=== PATIENT | female | born 1970 | race Caucasian/White ===

== ENCOUNTER 2025-01-12 18:58 | Emergency (ER) | payer OTHER, SELFPAY ==
--- NOTE | ~2025-01-12 | XR_ITS ---
CLINICAL HISTORY: pain, injury 3 views right hand : Comparison: None Findings: No dislocations No significant arthritic change . The carpal metacarpal joints, metacarpal phalangeal joints and inter phalangeal joints are unremarkable. No erosions No radiopaque foreign body Impression: There is an impacted comminuted intra-articular comminuted fracture involving the distal radius with mild displacement of fragments.. There is ulnar styloid avulsion. 3 views right wrist, with navicular view Comparison: None Findings: There is a comminuted impacted intra-articular fracture of the distal radius with mild displacement of fragments. There is avulsion fracture of the ulnar styloid. The navicular bone is normal. No significant arthritic change No radiopaque foreign body Impression: Impacted intra-articular comminuted fracture of the distal radius. Mildly displaced avulsion fracture of the ulnar styloid. This document has been electronically signed by: Berhane Celis MD on 01/12/2025 20:16:17
--- NOTE | 2025-01-12 19:19 | ED.GENADULT ---
HPI - General Adult General Chief complaint: Extremity Injury, Upper Stated complaint: right wrist pain/ fall 01/12 Time Seen by Provider: 01/12/25 20:04 Source: patient and family (patient's ) Mode of arrival: ambulatory Limitations: no limitations History of Present Illness ED Provider: Katja Hutton PA-C HPI narrative: Patient is a 54 year old assigned female at with no reported medical history presenting to the emergency department today with right wrist pain. Patient states that she went to hit a volleyball at her daughter's volley ball tournament when she fell backwards and landed on her outstretched right wrist. Patient states that she is right hand dominant. Patient states that she did not hit her head or have any loss of consciousness. Patient states that she first went to the urgent care who placed her in a temporary splint and told her to come to the ER for imaging. Patient denies any dizziness, lightheadedness, abdominal pain, nausea, vomiting, fever, chills, blurry vision, double vision, loss of vision, chest pain, difficulty breathing, shortness of breath, back pain, night sweats, pain with urination, increased urinary frequency, increased urinary urgency, blood in her urine or stool, syncope or a near syncopal episode, bowel incontinence, bladder incontinence, or any other complaints at this time. Location: right and upper extremity Relieving factors: immobilization Exacerbating factors: movement Associated symptoms: denies other symptoms Treatments prior to arrival: none Related Data Allergies Allergy/AdvReac Type Severity Reaction Status Date / Time No Known Allergies Allergy Verified 01/12/25 19:22 Review of Systems Constitutional: Constitutional: Reports no additional constitutional complaints, Denies chills, Denies fever(s) and Denies night sweats Eyes: Eyes: Reports no additional eye complaints, Denies blurry vision, Denies change in vision, Denies diplopia, Denies eye discharge, Denies loss of vision and Denies eye pain ENT: Denies dizziness Cardiovascular: Cardiovascular: Reports no additional cardiovascular complaints, Denies chest pain, Denies lightheadedness, Denies Loss of Consciousness and Denies dyspnea Respiratory: Respiratory: Reports no additional respiratory complaints and Denies dyspnea Gastrointestinal: Gastrointestinal: Reports no additional gastrointestinal complaints, Denies abdominal pain, Denies melena, Denies hematochezia, Denies change in bowel habits and Denies change in stool character Genitourinary: Genitourinary: Denies hematuria, Denies urinary frequency, Denies dysuria, Denies urinary incontinence, Denies urinary hesitancy and Denies urinary urgency Musculoskeletal: Musculoskeletal: Reports no additional musculoskeletal complaints, Denies numbness and Denies tingling Comments: right wrist pain Neurologic: Denies dizziness, Denies loss of vision, Denies numbness and Denies tingling Psychiatric: Psychiatric: Reports no additional psychiatric complaints Endocrine: Endocrine: Reports no additional endocrine complaints Hematologic/Lymphatic: Hematologic/Lymphatic: Reports no additional hematologic/lymphatic complaints Allergic/Immunologic: Allergic/Immunologic: Reports no additional allergic/immunologic complaints PMFSH Past Medical History Attestation statement: The following information was validated with the patient. (all information validated with the patient's ) Source: old records reviewed, obtained from family (patient's provided additional history and confirmed the history provided by the patient) and nursing notes reviewed Social History Social History Advance Directives: No Advance Directives Information Provided: No Do you have a plan to hurt others: No Plan Physical Exam ED Vital Signs: Vital Signs - 24 hr 01/12/25 19:21 Temperature 97.8 F Pulse Rate 84 Respiratory Rate 14 Blood Pressure 149/89 H Pulse Oximetry 99 Oxygen Delivery Method Room Air BMI result Body Mass Index 30.6 Const General: cooperative, no acute distress, alert and awake Nutritional Appearance: well nourished Orientation/consciousness: patient oriented x3 Limitations: no limitations [facility]: Yes normal to inspection and Yes atraumatic Ears: hearing grossly normal bilaterally and external ears normal General nose exam: Normal external nose present, no nasal discharge noted and no epistaxis Face and sinus: Yes normal facial exam, No abrasion and No laceration Mouth: Normal oral and palatal mucosa present, no drooling and no muffled voice Eyes General: appearance normal, both eyes and all related structures Periorbital: periorbital findings normal Eyelids: Yes eyelids normal Conjunctivae: conjunctivae normal Pupils: Equal, round and reactive pupils present EOM: EOMs intact bilaterally Neck Neck: Yes normal visual inspection, Yes full ROM and Yes no lymphadenopathy Chest Chest palpation & inspection: normal inspection of the chest Resp Effort & Inspection: normal respiratory effort and able to speak in complete sentences GI Inspection: Yes normal to inspection Neuro General: patient oriented x3, moves all extremities and CN's II-XI intact bilaterally Cranial nerves: Yes Equal, round and reactive pupils present Cognition (Neuro): normal cognition Extrem Other: right wrist in loosely applied volar wrist splint pain with right wrist ROM General: Yes capillary refill normal Psych Appearance: grossly normal Mental Status: mental status grossly normal Affect: normal affect Attitude: cooperative Thought process: Normal thought process present Thought content: Normal thought content present Insight: Good insight present (Psych) Course Course Course Narrative: RME performed by Katja Hutton PA-C. Patient is a 54 year old assigned female at presenting to the emergency department with right wrist pain. Patient states she slipped 3 hours [employer] and landed on an outstretched right wrist. Detailed physical exam and review of systems are deferred to the primary care physician. Imaging ordered. Patient placed back in the waiting room pending room availability and results. Procedures Orthopedic Splinting/Casting Injury #1: Side: right Upper Extremity Injury Location: wrist Upper Extremity Immobilizer: sling/shoulder immobilizer and sugar tong splint Medical Decision Making Medical Decision Making MDM Narrative: Patient is a 54 year old assigned female at with no reported medical history presenting to the emergency department today with right wrist pain. Patient's physical exam was as noted in the physical exam portion of this note. Patient's right wrist x-ray showed a radius and ulnar fracture. I explained my physical exam findings as well as all test results to the patient and the patient's . I answered all questions asked by the patient and the patient's . Patient's right wrist was placed in a sugar tong splint, per procedure note, without incident. While splint was placed, pressure was applied to the dorsal aspect of the wrist to better align the slight displacement of the radius fracture. Patient's PMS was intact prior to and after splint. I stressed the importance of the patient taking her medication as directed (either prescribed or as the over the counter packaging recommends). I stressed the importance of the patient following up with her primary care provider and an orthopedic provider. I stressed the importance of the patient returning to the emergency department immediately if her symptoms were to worsen or if she were to develop any dizziness, shortness of breath, difficulty breathing, chest pain, blurry vision, loss of vision, nausea, vomiting, abdominal pain, fever, chills, back pain, or any other complaints. Patient and the patient's verbalized agreement and understanding with this treatment plan and discharge. Given patient is from out of the area - patient's entire note was printed and provided to the patient and her along with an imaging disk for her to follow up with a closer orthopedic provider. Differential Diagnosis Differential Diagnoses: The differential diagnosis associated with the presentation includes Wrist fracture Admission/Observation Consideration of admission/observation: Escalation of care including admission/observation considered Patient would have been admitted to the hospital had her work up had any findings where hospital admission was appropriate and her clinical presentation warranted hospital admission. Independent Interpretation I performed an independent interpretation of an: Plain X-Ray Interpretation: My interpretation is in agreement with the radiologist's impression of this imaging study. CLINICAL HISTORY: pain, injury 3 views right hand : Comparison: None Findings: No dislocations No significant arthritic change . The carpal metacarpal joints, metacarpal phalangeal joints and inter phalangeal joints are unremarkable. No erosions No radiopaque foreign body Impression: There is an impacted comminuted intra-articular comminuted fracture involving the distal radius with mild displacement of fragments.. There is ulnar styloid avulsion. 3 views right wrist, with navicular view Comparison: None Findings: There is a comminuted impacted intra-articular fracture of the distal radius with mild displacement of fragments. There is avulsion fracture of the ulnar styloid. The navicular bone is normal. No significant arthritic change No radiopaque foreign body Impression: Impacted intra-articular comminuted fracture of the distal radius. Mildly displaced avulsion fracture of the ulnar styloid. This document has been electronically signed by: Berhane Celis MD on 01/12/2025 20:16:17 Dictated By: Berhane Celis MD Signed By: Electronically signed by Berhane Celis MD 01/12/252016 Radiology Impression Discussion of test interpretation with radiology: I have reviewed the radiologist's reading. Independent Historian Clinical information obtained from an independent historian. History obtained from or confirmed by: Spouse (patient's provided additional history and confirmed the history provided by the patient.) Discharge Plan Discharge Clinical Impression: Fracture of wrist Patient Disposition: Home, Self-Care Instructions: Wrist Fracture in Adults (ED) Additional Instructions: Your x-ray showed that you broke both your radius and your ulna. Do NOT get your splint wet. Do NOT remove your splint. If you have any change in sensation, movement, or color of your right fingers - you may loosen the outer CHRISTOPH wraps. If you find yourself loosening the CHRISTOPH wraps to the point of seeing the white splint material underneath - STOP and proceed to your closest Emergency Department immediately. Follow up with your primary care provider and an orthopedic provider. Return to the emergency department immediately if your symptoms worsen or if you develop any dizziness, shortness of breath, difficulty breathing, chest pain, blurry vision, loss of vision, nausea, vomiting, abdominal pain, fever, chills, back pain, or any other complaints. Referrals: [facility] [place] Family Medicine [Provider Group] (Call to establish and follow up with a primary care provider. IF you already have a primary care provider, please follow up with them.) [facility] [place] [facility] [Provider Group] (Call to establish and follow up with a primary care provider. IF you already have a primary care provider, please follow up with them.) [facility] [place] Primary CareAbhishek [Provider Group] (Call to establish and follow up with a primary care provider. IF you already have a primary care provider, please follow up with them.) [facility] [place] Primary CareTim [Provider Group] (Call to establish and follow up with a primary care provider. IF you already have a primary care provider, please follow up with them.) [facility] [place] [facility] [Provider Group] (Call to establish and follow up with an orthopedic provider. ) Print Language: Somali
[2025-01-12 19:21] VITALS: BP 149/89; PULSE 84; RESP 14; TEMP 36.6; O2SAT 99; BMI 30.6
--- OUTSIDE RECORDS SUMMARY | 2025-01-12 20:25 | XMS_ITS | Continuity of Care Document ---
Author Organization [place] - [facility], [facility] Address [address] [place] [address] Assessment No assessment recorded. Plan of Treatment Reminders Order Date Submit Date Provider Last Modified By Organization Details Last Modified Time Details Appointments Physical 2024 10:00A M MEME RAMÍREZ Not available Not available Not available Lab None recorded. Referral None recorded. Procedures None recorded. Surgeries None recorded. Imaging None recorded. Medication Orders None recorded. Patient TargetsNo targets recorded. Patient InstructionsNo instructions recorded. Reason for Referral None Reported. Problems Name Problem SNOMED Code Status Onset Date Resolution Date Notes Provider Name and Address Organization Details Recorded Time Low back pain 200118490 Active 2015 Lesa mock [facility] 6 16:39:59 Dysuria [id number] Jeanette Parnell NP [address] [place], [address], [facility] 4 15:01:45 Amenorrhea [id number] Jeanette Parnell NP [address] [place], [address], [facility] 4 15:01:45 Breast tenderness [id number] Jeanette mock [facility] 4 12:17:02 Dysfunctiona l uterine bleeding Active Marie mock [facility] 4 06:59:26 Depressive disorder [id number] Jeanette Parnell NP [address] [place], [address], [facility] 6 13:44:43 Breast lump symptom Active Marie Rodartetomaszshahid emili [facility] 5 10:11:34 Anemia 984066421 Active Marie Rodartesweetie mock [facility] 5 10:11:34 Abdominal bloating 333254766 Active Marie Rodartesweetie mock [facility] 5 10:11:34 Problem Notes None recorded. Procedures Surgical History Date Name Laterality Status Provider Name and Address Organization Details Recorded Time 024 Most Recent Mammogram completed Asya Langford [facility] 09/14/2024 10:06:16 020 Most Recent Bone Density completed Trisha Delatorre [facility] 09/01/2022 10:13:01 017 Date of Last Pap Smear completed Kindra Wang [facility] 08/10/2017 13:15:20 996 Cholecystectomy completed Elin Dobbins [facility] 06/06/2013 10:59:21 Imaging Results None recorded. Procedure Notes None recorded. Medical Equipment None Reported. Allergies No known drug allergies Medications Name Sig Start Date Stop Date Status Note LastModified by Organization Details LastModified Time carisoprodo l 350 mg tablet Take 1 tablet 3 times a day by oral route. 11/17 completed Not Available Not Available Not Available cyclobenzap rine 10 mg tablet TAKE 1 TABLET NEEDED BY ORAL ROUTE AT BEDTIME. 08/19 completed Not Available Not Available Not Available venlafaxine ER 75 mg capsule,ext ended release 24 hr TAKE 1 CAPSULE(S ) EVERY DAY BY ORAL ROUTE FOR 30 DAYS. 08/11 completed Not Available Not Available Not Available doxycycline hyclate 100 mg capsule TAKE 1 CAPSULE TWICE DAILY X 10 DAYS 08/24 completed Not Available Not Available Not Available ibuprofen 800 mg tablet PLEASE SEE ATTACHED FOR DETAILED DIRECTION S 10/18 /2024 completed Not Available Not Available Not Available fluconazole 150 mg tablet TAKE ONE TABLET AT THIS TIME AND ONE TABLET IN 72 HOURS IF SYMPTOMS PERSIST. 06/30 completed Not Available Not Available Not Available hydrocodone 5 mg-acetamin ophen 325 mg tablet active Not Available Not Available No t Available meloxicam 15 mg tablet 1 TABLET ORALLY ONCE A DAY 30 DAY(S) 09/01 completed Not Available Not Available Not Available ondansetron HCl 4 mg tablet TAKE 2 TABLETS BY MOUTH TWICE A DAY NEEDED FOR 5 DAYS. 08/11 completed Not Available Not Available Not Available prednisone 20 mg tablet PLEASE SEE ATTACHED FOR DETAILED DIRECTION S 08/19 completed Not Available Not Available Not Available venlafaxine ER 150 mg capsule,ext ended release 24 hr TAKE ONE CAPSULE BY MOUTH EVERY DAY 08/11 completed Not Available Not Available Not Available tramadol 50 mg tablet Take 1 tablet every 6 hours by oral route for 10 days. 11/17 completed Not Available Not Available Not Available oxycodone-a cetaminophe n 5 mg-325 mg tablet active Not Available Not Available No t Available meclizine 25 mg tablet TAKE 1 TABLET BY MOUTH 3 TIMES A DAY 08/11 completed Not Available Not Available Not Available cephalexin 500 mg capsule TAKE 1 CAPSULE BY MOUTH THREE TIMES A DAY FOR 7 DAYS 08/15 completed Not Available Not Available Not Available paroxetine 20 mg tablet Take 1 tablet every day by oral route for 30 days. active Not Available Not Available No t Available Cipro 500 mg tablet Take 1 tablet every 12 hours by oral route for 7 days. 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 active Not Available Not Available No t Available ondansetron 4 mg disintegrat ing tablet PLACE 2 TABLETS TWICE A DAY BY TRANSLING UAL ROUTE NEEDED. 08/19 completed Not Available Not Available Not Available fluticasone propionate 50 mcg/actuati on nasal spray,suspe nsion active Not Available Not Available Not Available mometasone 0.1 % topical cream USE TO APPLY TO AFFECTED AREA TWICE DAILY 06/30 completed Not Available Not Available Not Available amoxicillin 875 mg-potassiu m clavulanate 125 mg tablet TAKE 1 TABLET BY MOUTH EVERY 12 HOURS FOR 7 DAYS 08/14 completed Not Available Not Available Not Available cyclobenzap rine 5 mg tablet active Not Available Not Available Not Available bupropion HCl XL 300 mg 24 hr tablet, extended release TAKE 1 TABLET BY MOUTH EVERY DAY 01/17 completed Not Available Not Available Not Available bupropion HCl XL 150 mg 24 hr tablet, extended release TAKE 1 TABLET EVERY DAY BY ORAL ROUTE FOR 30 DAYS. 07/28 completed Not Available Not Available Not Available nitrofurant oin monohydrate /macrocryst als 100 mg capsule TAKE 1 CAPSULE BY MOUTH EVERY 12 HOURS FOR 5 DAYS 09/07 completed Not Available Not Available Not Available carisoprodo l 250 mg tablet Take 1 tablet 3 times a day by oral route as needed for 10 days. 08/25 completed Not Available Not Available Not Available Vitals Date Recorded Body height Body mass index (BMI) Body weight Heart rate Oxygen saturation Oxygen saturation in Arterial blood by Pulse oximetry Body temperature Systolic blood pressure Diastolic blood pressure Provider Name and Address Organization Details Last Updated DateTime 5 157.48 cm 31.9 kg/m2 86571.8 7 g 79 /min 99 % 99 % 98.9 [degF] 110 mm[Hg] 80 mm[Hg] Asya Cormier i, [place] - [facility] 5 09:44:31 Social History Question Answer Notes LastModified by Organizat ion Details LastModified Time Tobacco Smoking Status Former Smoker Liz mock [place] - [facility] 08/19/2021 11:10:11 Do You Have An Advance Directive? No Information not available 08/19/2021 What Is Your Level Of Alcohol Consumption? Occasional Information not available 08/19/2021 What Is Your Level Of Caffeine Consumption? Moderate 1-2 Cups Of Coffee Daily Information not available 09/14/2024 How Much Tobacco Do You Chew? None Information not available 08/14/2019 In The 14 Days Before Symptom Onset, Have You Had Close Contact With A Laboratory-confi rmed COVID-19 While That Case Was Ill? No Information not available 08/15/2020 If Patient Spent Time In [facility] - Does The Patient Live In [facility]? No [email or web address] Information not available 12/27/2019 In The 14 Days Before Symptom Onset, Have You Had Close Contact With A Person Who Is Under Investigation For COVID-19 While That Person Was Ill? No Information not available 08/15/2020 In The 14 Days Before Symptom Onset, Did The Patient Spend Time In [facility]? No [email or web address] Information not available 12/27/2019 What Type Of Diet Are You Following? REGULAR Information not available 06/30/2021 Which Illicit Or Recreational Drugs Have You Used? NONE Information not available 09/14/2024 Do You Or Have You Ever Used E-cigarettes Or Vape? Never Used Electronic Cigarettes Information not available 08/14/2019 When Did You Quit Smoking? 16+yearssince lastcigarette Information not available 06/30/2021 Are There Any Guns Present In Your Home? No Information not available 06/30/2021 Hard Of Hearing Or Deaf In One Or Both Ears? No Information not available 08/11/2018 Legally Blind In One Or Both Eyes? No Information not available 08/11/2018 When Was Your Last Colonoscopy 10/02/2019 [email or web address] Information not available 11/19/2019 Do You Have A Medical Power Of Creel Selector? Yes Information not available 08/19/2021 What Was The Date Of Your Most Recent Tobacco Screening? 01/08/2025 Information not available 01/08/2025 Do You Have An Out Of Hospital DNR? No Information not available 08/19/2021 Performs Monthly Self-breast Exam? Yes Information not available 09/07/2023 Do You Have Any Pets? Yes Information not available 06/30/2021 Do You Use Protection During Sex? No Information not available 08/19/2021 What Is Your Relationship Status? Information not available 06/30/2021 Do You Use Your Seat Belt Or Car Seat Routinely? Yes Information not available 06/30/2021 Are You Sexually Active? Yes Information not available 06/30/2021 Do You Have Smoke And Carbon Monoxide Detectors In Your Home? Yes Information not available 06/30/2021 Are You Passively Exposed To Smoke? No Information not available 06/30/2021 Do You Or Have You Ever Used Smokeless Tobacco? Never Used Smokeless Tobacco Information not available 08/14/2019 How Much Tobacco Do You Smoke? No Information not available 08/31/2013 Do You Use Any Illicit Or Recreational Drugs? No Information not available 06/30/2021 Do You Use Sunscreen Routinely? Yes Information not available 06/30/2021 How Many Years Have You Smoked Tobacco? 10 Information not available 08/31/2013 Do You Have Any Dietary Restrictions? No Information not available 06/30/2021 Do You Or Have You Ever Used Any Other Forms Of Tobacco Or Nicotine? No Information not available 08/19/2021 Sex: Unknown Functional Status Question Answer Note LastModified by Organizat ion Details LastModified Time What is your exercise level? Occasional Information not available 06/30/2021 Mental Status None recorded. Family History Relationship Description Onset Age of this Age Resolved Age Notes LastModified by Organization Details LastModified Time Mother Hypertensive disorder previo usly record ed as Hypert ension emily Not available 05/14/2016 13:10:49 Father Hypertensive disorder previo usly record ed as Hypert ension emily Not available 05/14/2016 13:10:49 Unspecified Relation Malignant neoplastic disease 46 Not available 17:47:51 Medical History Condition Response Coronary Artery Disease N Gout N Kidney Stones N Blood Diseases N Hyperthyroidism N COPD N Depression N Hypothyroidism N Developmental or Behavioral Disorders N Eczema, Hives or other skin conditions N Anxiety Disorder N A-Fib N Muscle, Joint, or Bone Problems N Vision or Eye Problems N Arthritis Y Serious Illness or Injuries N Congenital Anomalies N Cancer N Stroke N Bladder or Kidney Problems N Hospital Admission other than N High Cholesterol N Liver Disease N Fibromyalgia N Kidney Disease N Heart Problems N Ear or Hearing Problems N ADD or ADHD N Thyroid Problems N Skin Problems N Anemia N Constipation N Diabetes N Bedwetting N Seizures/Epilepsy N Tuberculosis N Diverticulitis N Asthma N Allergies N GERD/Reflux N Heart Disease N Pulmonary Embolism N Hypertension N Osteoporosis N Chicken Pox N Gynecological History Statement/Question Response Number Of Children 4 Flow Light Date of LMP 04/11/2019 Duration of Flow (days) 3 Most Recent Mammogram 08/22/2024 Current Control Method None Age at First Child 27 If Post Menopausal, Age at Menopause 1 Frequency of Cycle (Q days) 34 Most Recent Bone Density 10/15/2020 Sexually Active? Y Menses Monthly N Date of Last Pap Smear 08/10/2017 LMP Definite Obstetrics History GPAL:G 0 P 0 0 0 0 Immunizations Vaccine Type Date Status Note Provider Nam e and Address Organization Details Recorded Time influenza, seasonal, intradermal, preservative free 4 completed Not Available [facility] 12/15/2019 02:16:24 influenza, seasonal, intradermal, preservative free 3 completed Not Available [facility] 12/15/2019 02:16:22 Tdap 0 completed Tamera Parnell, KAMILA [address] [place], [address], [facility] - [facility] 08/15/2020 13:50:31 zoster recombinant 4 completed Not Available [facility] 09/14/2024 11:03:54 zoster recombinant 5 completed Not Available [facility] 01/08/2025 10:00:24 Influenza, split virus, trivalent, preservative 5 completed Asya mock [place] - [facility] 09/07/2023 10:06:34 Past Encounters Encounter ID Performer Location Encounter Start Date Encounter Closed Date Diagnosis/Indication Diagnosis SNOMED-CT Code Diagnosis ICD10 Code Diagnosis Note [id number] MEME RAMÍREZ [facility] [address] [place] [address] 01/08/2025 09:37:48 01/08/2025 10:02:21 Active immunization 36196119 Z23 Dose #2inj only today Health Concerns Section Related Observation LastModified by Organization Detai ls LastModified Time None Recorded Concern Status LastModified by Organization Details LastModified Time None Recorded Payers Encounter Date Sequence Insurance Name Policy Number Policy Catalan Covered Member ID Catalan Member ID Guarantor Name 01/08/2025 1 [facility] Inaika PLANS [facility] TYPE I (HMO) [id number] Cecilia Pollard [id number] Cecilia Pollard Notes Date Note Type Note Provider Name a ar Address Organization Details Recorded Time 01/08/2025 text/html second shingles dose MEME RAMÍREZ [address] [place], [address], [place] - [facility] 01/08/2025 10:00:09 OBGyn Episode No OBEpisode recorded.
--- OUTSIDE RECORDS SUMMARY | 2025-01-12 20:26 | XMS_ITS ---
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 Name Role Phone Jagjit Bowles DO Primary Care Provider Unavail able Day Garcia Unavailable [phone] Ryan Vaishali Navarro Unavailable [phone] Allergies No Known Allergies REASON FOR VISIT left plantar fasciitis Social History Tobacco Use: Social History Observation Description Date Details (start date - stop date) Never Smoker NA - NA Tobacco Use/Smoking Question Answer Notes Patient is a: never smoker Tobacco Control (Standard) Question Answer Notes Tobacco use: Nonsmoker Vital Signs Height 62 in 05/30/2024 Weight 175.8 lbs 05/30/2024 BMI 32.15 kg/m2 05/30/2024 Encounters Encounter Location Date Provider Diagnosis [facility] [address] [place] [address] [id number] 05/30/2024 Vaishali Navarro Plantar fascial fibromatosis M72.2 and Left foot pain M79.672 Assessments Encounter Date Diagnosis (ICD Code) Assessment Notes Treatment Notes Treatment Clinical Notes Section Notes 05/30/2024 Plantar fascial fibromatosis (ICD-10 - M72.2) Discussed findings in detail with patient. Discussed with patient that this time her pain has resolved. At this time recommend patient continue stretching 2 to 3 times a week for the next month. Explained to patient that although her pain has resolved with the injection we want to ensure that it remains resolved. Discussed with patient that after 1 month she can discontinue stretching as long as she has no reoccurrence. If she is noticing reoccurrence after 1 month or in the future recommend she increase/ resume the stretching to twice a day. If she continues to have pain she is to call the office, and we will discuss a 2nd injection. 05/30/2024 Left foot pain (ICD-10 - M79.672) Patient's pain has resolved 05/30/2024 Other Evaluation and management including exam, discussion and documentation for a total of 21 minutes. It should be noted that part or all of this chart was completed utilizing [employer] Speech Recognition software. Grammatical errors, random word or phrase insertions or admissions, pronoun errors, incomplete and/or incorrect sentences are occasional consequences of the dictation system due to software parity limitation, ambient noise or hardware issues. These errors may have been missed by proof reading prior to the fixation of the authors electronic signature. Any questions or concerns about the content, text, or information contained in the body of this clinical note entry should be directly addressed by the provider for clarification. Plan Of Treatment Next Appt Details Follow Up: prn, Reason: Progress Notes * Maritza POLLARDOB:[birth year] (53 yo F)Acc No.[id number]:05/30/2024 Patient:?ARIELA Cecilia Provider:?Vaishali Navarro DPM :1970???Age:53 Y???Sex:Female D ate:05/30/2024 Address: [address], [facility] [facility] Pcp:Jagjit Bowles, DO Subjective: * Chief Complaints: * ???Left plantar fasciitis * HPI: ???Podiatric:? 53-year-old female presents today follow-up left plantar fasciitis. Patient admits that her pain has completely resolved. She admits that after the injection within 24 hours her pain had resolved. She has had no reoccurrence of the pain since her last visit. She admits that she is worn several different types of shoes without much issue. She did wear flip-flops yesterday throughout the day and admits that she did have some Charley horses up the leg and into the thigh at the end of the day. She denies stretching at this time. She denies any other issues. * ROS:?ROS:?Constitutional?Patient denies, fever, chills, malaise.?Musculoskeletal?Patient complains of, joint pain, swelling and muscle pain.?Skin?Denies dry skin, itching, and rash, ulcers, alopecia.?Neurologic?Denies dizziness, fainting, headaches, loss of strength, memory loss or tingling/numbness.? * Medical History:? * Surgical History:?cholecyste ctomy * Hospitalization/Major Diagno stic Procedure:?Denies Past Hospitalization * Family History:?Father: kena caceres, diagnosed with Hypertension, Heart Disease.?Mother: alive, diagnosed with Hypertension.? * Social History:?Tobacco Use:?Tobacco Use/Smoking?Patient is a:?never smoker.?Tobacco Control (Standard)?Tobacco use:?Nonsmoker.?Social History:?Marital Status: . Living arrangements: with spouse. Alcohol use: none. Children: 4. Occupation: Unemployed. Drug Use: No. * Medications:?None * Allergies:?N.K.D.A.no[Allerg ies Verified] * Implants:? Objective: * Vitals:?Ht: 62, Wt:175.8, Wt Change: -5.4 lbs, BMI:32.15Index. * Examination: ???Dermatology: ?Dermatology?Skin is warm, dry. Skin temperature is warm to cool proximal to distal bilateral. No erythema or edema noted over the feet bilateral.?.?Musculoskeletal: ?Musculoskeletal?Cavus foot type b/l. Left foot: No pain or tenderness noted on palpation of the plantar medial calcaneal tubercle or throughout the heel. No pain noted within the medial arch. No evidence of edema or erythema over the medial arch. No pain noted of the posterior calcaneus. Negative Tinel's. On dorsiflexion, medial fascial band is still noted to be somewhat taut, but there is noted to be increased dorsiflexion ability as compared to previous visits.?Neurological: ???Sensation is intact to light touch at the level of the digits. ???Vascular: ?Pedal pulses palpable CFT< 3 seconds b/l. No edema noted. ??? Assessment: * Assessment: 1.?Plantar fascial fibromato sis - M72.2 (Primary)?2.?Left foot pain - M79.672? Plan: * Treatment: 2.?Left foot pain? Clinical Notes:Patient's pain has resolved?? 3.?Others? Clinical Notes: Evaluation and management including exam, discussion and documentation for a total of 21 minutes. It should be noted that part or all of this chart was completed utilizing [employer] Speech Recognition software. Grammatical errors, random word or phrase insertions or admissions, pronoun errors, incomplete and/or incorrect sentences are occasional consequences of the dictation system due to software parity limitation, ambient noise or hardware issues. These errors may have been missed by proof reading prior to the fixation of the authors electronic signature. Any questions or concerns about the content, text, or information contained in the body of this clinical note entry should be directly addressed by the provider for clarification. ?? * Procedure Codes:? * Follow Up:?prn * * Sign off status: Completed true * Provider:?Vaishali Navarro DPM Date:?0 05/30/2024 Generated for Artur john/Zhane/Kacie on:?01/12/2025 08:26 PM EST History and Physical Notes * HPI (History of Present Illness) Category Sub-Category Detail Notes Category Not es Podiatric 53-year-old fem chayo presents today follow-up left plantar fasciitis. Patient admits that her pain has completely resolved. She admits that after the injection within 24 hours her pain had resolved. She has had no reoccurrence of the pain since her last visit. She admits that she is worn several different types of shoes without much issue. She did wear flip-flops yesterday throughout the day and admits that she did have some Charley horses up the leg and into the thigh at the end of the day. She denies stretching at this time. She denies any other issues. Examination Category Sub-Category Detail Notes Category Not es Neurological Sensation is intact to light touch at the level of the digits Dermatology Dermatology Skin is warm, dr dexter Skin temperature is warm to cool proximal to distal bilateral. No erythema or edema noted over the feet bilateral. Musculoskeletal Musculoskeletal Cavus foot type b/l. Left foot: No pain or tenderness noted on palpation of the plantar medial calcaneal tubercle or throughout the heel. No pain noted within the medial arch. No evidence of edema or erythema over the medial arch. No pain noted of the posterior calcaneus. Negative Tinel's. On dorsiflexion, medial fascial band is still noted to be somewhat taut, but there is noted to be increased dorsiflexion ability as compared to previous visits Vascular Pedal pulses palpable CFT< 3 seconds b/l. No edema noted.
--- OUTSIDE RECORDS SUMMARY | 2025-01-12 20:26 | XMS_ITS | Patient Health Record ---
Author Organization [facility] Address [address] [place] [address] Care Team Providers Care Box Coverer Hand Name Role Phone Jagjit Bowles DO Primary Care Provider Unavail able Day Garcia Unavailable [phone] Vaishali Zuleta Unavailable [phone] Allergies No Known Allergies Results Component Value Reference Range Notes XRAY FOOT RIGHT Reviewed date:03/09/2024 11:19:12 AM Interpretation: Performing Lab: Notes/Report: PROCEDURE: XRAY Foot Right 3v min INDICATION: Anterior lung. COMPARISON: None. FINDINGS: Metallic BB marker placed at the dorsum of the right mid foot corresponding to the palpable site of lump. There is focal soft tissue prominence or soft tissue swelling at this location. No evidence of acute fracture, dislocation, periosteal reaction or osseous destructive changes involving the right foot. Multifocal mild osteoarthritic changes identified throughout the right foot most pronounced at the first metatarsophalangeal joint, the proximal and distal interphalangeal joints of the first through the fifth toes. No periarticular calcifications are seen. There is posterior and plantar calcaneal spurring likely due to noninflammatory enthesopathy. Visualized soft tissues are unremarkable. IMPRESSION: 1. No evidence of acute fracture, dislocation, osseous destructive changes or periosteal reaction involving the right foot. 2. Focal mild apparent soft tissue prominence or soft tissue swelling noted at the dorsum of the right mid foot corresponding to the palpable site of lump. 3. Mild to moderate multifocal osteoarthrosis throughout the right foot, as discussed above. Given history of dorsal right foot lump, consider further evaluation with focused soft tissue ultrasound or cross-sectional imaging such as contrast-enhanced MRI. Electronically Signed By: David White M.D. Signature Date: 03/09/2024 9:13 AM PROCEDURE: XRAY Foot Right 3v min INDICATION: Anterior lung. COMPARISON: None. FINDINGS: Metallic B B marker placed at the dorsum of the right mid foot corresponding to the palpable site of lum p. There is focal soft tissue prominence or soft tissue swelling at this location. No evidenc e of acute fracture, dislocation, periosteal reaction or osseous destructive changes involving the right foot. Multifocal mild osteoarthritic changes identified throughout the right foot most pronounced at the first metatarsophalangeal joint, the proximal and distal interphal angeal joints of the first through the fifth toes. No periarticular calcifications are s een. There is posterior and plantar calcaneal spurring likely due to noninflammatory enth esopathy. Visualized soft tissues are unremarkable. IMPRESSION: 1. No evidence of ac [place] fracture, dislocation, osseous destructive changes or periosteal reaction involving t he right foot. 2. Focal mild appare nt soft tissue prominence or soft tissue swelling noted at the dorsum of the right mid foot corresponding to the palpable site of lump. 3. Mild to moderate multifocal osteoarthrosis throughout the right foot, as discussed above. Given history of gonzález christiano right foot lump, consider further evaluation with focused soft tissue ultrasound or cross- sectional imaging such as contrast-enhanced MRI. Electronically Sara d By: David White M.D. Signature Date: 03/09 9:13 AM Reason For Referral No Information Social History Tobacco Use: Social History Observation Description Date Details (start date - stop date) Never Smoker NA - NA Tobacco Use/Smoking Question Answer Notes Patient is a: never smoker Tobacco Control (Standard) Question Answer Notes Tobacco use: Nonsmoker Vital Signs Height 62 in 05/30/2024 Weight 175.8 lbs 05/30/2024 BMI 32.15 kg/m2 05/30/2024 Encounters Encounter Location Date Provider Diagnosis [facility] [address], [place] [id number] 03/08/2024 Vaishali Blitz Herbel Bone spur of right foot M77.51 ; Plantar fascial fibromatosis M72.2 ; Cavus foot, acquired M21.6X9 and Left foot pain M79.672 [facility] [address], [place] [id number] 04/02/2024 Vaishali Blitz Herbel Bone spur of right foot M77.51 ; Plantar fascial fibromatosis M72.2 ; Tinea pedis, right B35.3 ; Left foot pain M79.672 and Cavus foot, acquired M21.6X9 [facility] [address], [place] [id number] 04/25/2024 Vaishali Blitz Herbel Bone spur of right foot M77.51 ; Plantar fascial fibromatosis M72.2 ; Tinea pedis, right B35.3 ; Left foot pain M79.672 and Cavus foot, acquired M21.6X9 [facility] [address], [place] [id number] 05/30/2024 Vaishali Blitz Herbel Plantar fascial fibromatosis M72.2 and Left foot pain M79.672 [facility] [address] [id number] 03/08/2024 Vaishali Blitz Herbel Bone spur of right foot M77.51 Assessments Encounter Date Diagnosis (ICD Code) Assessment [...] (ICD-10 - M79.672) Patient's pain has resolved 04/25/2024 Bone spur of right foot (ICD-10 - M77.51) Discussed x-ray findings in detail with patient. Discussed with patient that it did show a soft tissue mass where we are noting that increased prominence. We discussed that follow-up studies can be performed including an MRI. At this time patient prefers to hold off as it is not causing her pain 04/02/2024 Plantar fascial fibromatosis (ICD-10 - M72.2) Discussed findings in detail with patient. We discussed additional treatment options given she is still having pain over the heel. We discussed injections, anti-inflammatori es, physical therapy, night splints, continuing with the at-home physical therapy. Patient would like to continue with at-home physical therapy and use a night splint. Patient already has not night splint at home. Patient is advised to wear this at night when she gets into bed. We discussed that it may be difficult to sleep in, and she can remove it prior to sleep. She will then follow up for reassessment in a few weeks 04/02/2024 Bone spur of right foot (ICD-10 - M77.51) Patient's right foot pain is resolved on exam. Patient did obtain x-rays but these were not discussed at today's visit. We will discuss them in detail at her follow up visit 03/08/2024 Bone spur of right foot (ICD-10 - M77.51) 03/08/2024 Plantar fascial fibromatosis (ICD-10 - M72.2) Discussed findings in detail and explained to patient how foot type /anatomy correlate to her current issue. Patient was made aware of the etiology of plantar fasciitis and the treatment options including shoe gear changes, activity modifications, stretching, icing, functional orthotic devices, strapping/taping, cortisone injections, physical therapy, anti-inflammatori es, and surgical correction. Patient will start stretching twice a day, icing at least once a day at night, wear supportive shoes and not walk barefoot/sock foot.. Stretches were discussed and demonstrated for patient, Educational literature was dispensed. Discussed the use of frozen water bottle daily. Discussed the use of NSAID therapy and recommended using Ibuprofen 400 mg twice a day x 2 weeks., Discussed the use of inserts and the 3 types of inserts. After a thorough discussion, recommended pre- josefa inserts such as Pure Stride or Super feet. All patient questions were asked and answered to their satisfaction 03/08/2024 Bone spur of right foot (ICD-10 - M77.51) Discussed findings in detail with patient. Discussed with patient that the bony prominence she is noting is over 1 of the midfoot joints of the right foot. We discussed possible reasons for the formation of this bony prominence including hypermobility at the joint. We discussed treatment options and at this time recommend an x-ray for full evaluation of the underlying deformity. Patient is agreeable. She will obtain x-rays after today's visit, and we will discuss them at her next visit. 03/08/2024 Cavus foot, acquired (ICD-10 - M21.6X9) Discussed with patient that she does have a high arch foot type. Discussed with patient that given her foot type I do recommend support on a regular basis. We discussed various types of supports and power step inserts were dispensed to patient with instructions on the proper break-in period. 04/02/2024 Tinea pedis, right (ICD-10 - B35.3) Patient was made aware of the above findings and the treatment options. I instructed patient on proper foot washing and drying. Patient will wash and dry the feet daily. Patient instructed to continue using the [id number] medication she has been using. If she does not note resolution in 1 week she will call the office and a prescription will be sent to her pharmacy 04/25/2024 Plantar fascial fibromatosis (ICD-10 - M72.2) Discussed findings in detail with patient. We discussed additional treatment options as she is still having pain over the heel. We discussed physical therapy versus an injection. At this time patient would like to move forward with an injection. Patient was instructed that she does need to continue with the at-home therapy, icing, NSAIDs as necessary and night splint. Patient was made aware of possible complications from cortisone injections including; pain, swelling, bleaching of the skin at the injection site, bruising, infection, rupture of ligament/tendon, weakening of soft tissue structures, allergic reaction, and elevation of blood glucose levels. After obtaining verbal consent, the skin was cleaned with alcohol. 3 cc of a 1:1 :1 mixture of 0.5% Marcaine plain, Dexamethasone, and Kenalog into the left heel without incident. This is the 1st injection 04/02/2024 Left foot pain (ICD-10 - M79.672) 04/25/2024 Tinea pedis, right (ICD-10 - B35.3) Patient's tinea pedis infection has resolved. 03/08/2024 Left foot pain (ICD-10 - M79.672) 04/02/2024 Cavus foot, acquired (ICD-10 - M21.6X9) patient instructed to remain in a stable shoe with the insert 04/25/2024 Left foot pain (ICD-10 - M79.672) 04/25/2024 Cavus foot, acquired (ICD-10 - M21.6X9) patient instructed to remain in a stable shoe with the insert 03/08/2024 Other Evaluation and management including exam, discussion and documentation for a total of 33 minutes. It should be noted that part or all of this chart was completed utilizing [employer] Speech Recognition software. Grammatical errors, random word [...] directly addressed by the provider for clarification. 05/30/2024 Other Evaluation and management including exam, discussion and documentation for a total of 21 minutes. It should be noted that part or all of this chart was completed utilizing [employer] Speech Recognition software. Grammatical errors, random word [...] directly addressed by the provider for clarification. 04/25/2024 Other Evaluation and management including exam, discussion and documentation for a total of 22 minutes. This is separate from the procedure performed It should be noted that part or all of this chart was completed utilizing [employer] Recognition software. Grammatical errors, random word or [...] directly addressed by the provider for clarification. 04/02/2024 Other Evaluation and management including exam, discussion and documentation for a total of 24 minutes. It should be noted that part or all of this chart was completed utilizing [employer] Speech Recognition software. Grammatical errors, random word [...] the provider for clarification. Plan Of Treatment Pending Test Test Name Order Date XRAY SHOULDER RIGHT 10/26/2021 Future Test Test Name Order Date XRAY SHOULDER RIGHT 08/06/2021 Insurance Providers Payer Name Payer Address Payer Phone Subscriber Number Group Number Insured Name Patient Relationship to Insured Coverage Start Date Coverage End Date [facility] [employer] [facility] [address] [place] [phone] [id number] DIRECT Cecilia Pollard Self - patient is the insured 4 Medicaid [address] [place] [address] [id number] [facility] PART[facility] HSN Cecilia Pollard Self - patient is the insured Medical (General) History Medical History History ICD Code depression Surgical History Surgery Date(Month/Year) cholecystectomy
--- OUTSIDE RECORDS SUMMARY | 2025-01-12 20:26 | XMS_ITS | Data Portability ---
Author Organization [place] - [facility]igh[facility] Address [address] [place] [address] Assessment No assessment recorded. Plan of Treatment Reminders Order Date Submit Date Provider Last Modified By Organization Details Last Modified Time Details Appointments Physica l 2024 10:00A M MEME RAMÍREZ Not available Not available Not available Lab urinaly sis, dipstic k 2023 024 [email or web address] In-House Results, For Internal Use Only, Do Not Delete/merge, [id number] 09/14/2024 11:03:36 TSH, serum or plasma 2023 024 MARK In-House Results, For Internal Use Only, Do Not Delete/merge, 09/17/2024 13:35:20 lipid panel, serum 2023 024 MARK In-House Results, For Internal Use Only, Do Not Delete/merge, 09/17/2024 13:35:18 CMP, serum or plasma 2023 024 MARK In-House Results, For Internal Use Only, Do Not Delete/merge, [id number] 09/17/2024 13:35:19 CBC w/ auto diff 2023 024 MARK In-House Results, For Internal Use Only, Do Not Delete/merge, [id number] 09/17/2024 13:35:19 urinaly sis, dipstic k 2022 023 [email or web address] In-House Results, For Internal Use Only, Do Not Delete/merge, [id number] 09/07/2023 11:20:13 TSH, serum or plasma 2022 023 MARK In-House Results, For Internal Use Only, Do Not Delete/merge, 09/09/2023 15:53:22 lipid panel, serum 2022 023 MARK In-House Results, For Internal Use Only, Do Not Delete/merge, 09/09/2023 15:53:20 CMP, serum or plasma 2022 023 MARK In-House Results, For Internal Use Only, Do Not Delete/merge, 09/09/2023 15:53:21 CBC w/ auto diff 2022 023 MARK In-House Results, For Internal Use Only, Do Not Delete/merge, 09/09/2023 15:53:21 urinaly sis, dipstic k 2021 022 [email or web address] In-House Results, For Internal Use Only, Do Not Delete/merge, [id number] 09/01/2022 10:40:09 TSH, serum or plasma 2021 022 MARK In-House Results, For Internal Use Only, Do Not Delete/merge, 09/04/2022 14:50:58 lipid panel, serum 2021 022 MARK In-House Results, For Internal Use Only, Do Not Delete/merge, [id number] 09/04/2022 14:50:55 CBC 2021 022 rosie In-House Results, For Internal Use Only, Do Not Delete/merge, 09/08/2022 09:12:51 CMP, serum or plasma 2021 022 MARK In-House Results, For Internal Use Only, Do Not Delete/merge, [id number] 09/04/2022 14:50:56 urinaly sis, dipstic k 2020 021 [email or web address] In-House Results, For Internal Use Only, Do Not Delete/merge, [id number] 08/19/2021 11:26:50 TSH, serum or plasma 2020 021 MARK In-House Results, For Internal Use Only, Do Not Delete/merge, [id number] 08/22/2021 16:27:23 lipid panel, serum 2020 MARK In-House Results, For Internal Use Only, Do Not Delete/merge, [id number] 08/22/2021 16:27:21 CBC 2020 rosie In-House Results, For Internal Use Only, Do Not Delete/merge, 08/26/2021 08:46:10 CMP, serum or plasma 2020 MARK In-House Results, For Internal Use Only, Do Not Delete/merge, [id number] 08/22/2021 16:27:22 hepatit is C panel, serum - [facility] recomme nded screeni ng for Hep C patient s born between 1944 and 1964 021 rosie In-House Results, For Internal Use Only, Do Not Delete/merge, 08/26/2021 08:46:20 Referral clinica l therapi st referra l - depress vivian symptom s, needs therapy 2022 023 [email or web address] Not available 09/08/2023 08:45:00 neurops ycholog ist referra l - needs neurops ych testing for diagnos is and help guiding treatme nt. Some depress vivian symptom s, some attenti on difficu lty 2022 023 [email or web address] Steve Nix EDD, [address] [facility], [place], [address], 09/07/2023 11:23:45 nutriti onist/d ietitia n referra l 2021 022 [email or web address] Not available 09/01/2022 10:42:15 Procedures None recorde d. Surgeries None recorde d. Imaging MAMMO, screeni ng, digital , bilater al - routine screeni ng, last 08/21/242023 024 [email or web address] [facility] [address] [place] [address], [place], [address], 09/14/2024 11:21:01 home sleep study 2020 021 MARK Not available 09/16/2021 17:37:35 Medication Orders None recorde d. Patient TargetsNo targets recorded. Patient Instructions Encounter Date Encounter Id Patient Instructions Last Modified By Organization Details Last Modified Time 08/19/2021 [id number] Physical and blood work done today. UTD with mammogram, pap smear, BMD, Tdap vaccine and colonoscopy. Refused flu and covid vaccines. Discussed appropriate diet and exercise. Will perform monthly BSEs. F/u pending labs. [email or web address] Not available 08/19/2021 11:29:47 09/01/2022 [id number] learning about dietary guidelines [email or web address] Not available 09/01/2022 10:40:09 Discussed healthy diet and exercise. Discussed appropriate age based screening measures. Discussed PMH and pertinent family history. All questions answered. Will follow up with lab results. Return to office yearly and PRN. sherine Not available 09/01/2022 10:40:17 09/07/2023 [id number] RTO for PE, labs, prn [email or web address] Not available 11/09/2023 21:13:00 09/14/2024 [id number] RTO for Shingrix #2, prn [email or web address] Not available 09/14/2024 11:01:48 Reason for Referral Tear Down Man/dietitian Refer ral for Obesity Referring Physician: Harpreet Gillespie, Family Medicine, Encounter Date: 09/01/2022 Clinical Therapist Referral for Depressive disorder depressive symptoms, needs therapy Referring Physician: [facility], Encounter Date: 09/07/2023 Neuropsychologist Referral f or Mood disorder needs neuropsych testing for diagnosis and help guiding treatment. Some depressive symptoms, some attention difficulty Referring Physician: [facility], Encounter Date: 09/07/2023 Results Created Date Observation Date Name Description Value Unit Range Abnormal Flag Note LastModifiedBy Organization Detail LastModifiedTime 08/19/20 21 08/22/2021 LIPID PANEL WITH REFLE X TO DIREC T LDL cholesterol, total 230 mg/dL <200 high Not Available [facility] [place] [facility] [address], [place], [address], 08/22/2021 16:27:20 08/19/20 21 08/22/2021 LIPID PANEL WITH REFLE X TO DIREC T LDL HDL cholesterol 62 mg/dL > or = 50 normal Not Available [facility] [place] [facility] [address], [place], [address], 08/22/2021 16:27:20 08/19/20 21 08/22/2021 LIPID PANEL WITH REFLE X TO DIREC T LDL triglyceride s 112 mg/dL <150 normal Not Available [facility] [place] [facility] [address], [place], [address], 08/22/2021 16:27:20 08/19/20 21 08/22/2021 LIPID PANEL WITH REFLE X TO DIREC T LDL LDL-choleste rol 145 mg/dL _(elaine c) high Refer ence range : <100 Kenna able range <100 mg/dL for prima ry preve ntion ; <70 mg/dL for patie nts with CHD or diabe tic patie nts with > or = 2 CHD risk facto rs. LDL-C is now calcu lated using the Rosa n-Hop kins calcu flaco n, which is a valid ated novel metho d provi iván dosste r accur acy than the Fried harvey equat ion in the estim ation of LDL-C . Rosa magallon SS et al. MILAGROS. 2013; 310(1 9): 2061- 2068 (http ://ed rachaelati on.Qu Martell hopkins Fooooos. com/f aq/FA Q164) Not Available [facility] [place] [facility] [address], [place], [address], 08/22/2021 16:27:20 08/19/20 21 08/22/2021 LIPID PANEL WITH REFLE X TO DIREC T LDL chol/HDLC ratio 3.7 (calc ) <5.0 normal Not Available [facility] [address], [address], 08/22/2021 16:27:20 08/19/20 21 08/22/2021 LIPID PANEL WITH REFLE X TO DIREC T LDL non HDL cholesterol 168 mg/dL _(elaine c) <130 high For patie nts with diabe lauri plus 1 major ASCVD risk facto r, treat ing to a non-H DL-C goal of <100 mg/dL (LDL- C of <70 mg/dL ) is nadine doss optio n. Not Available [facility] [address], [address], 08/22/2021 16:27:20 08/19/20 21 08/22/2021 COMPR EHENS VIVIAN METAB OLIC PANEL glucose 84 mg/dL 65-139 normal Non-f astin g refer ence inter poly Not Available [facility] [address], [place], [address], 08/22/2021 16:27:22 08/19/20 21 08/22/2021 COMPR EHENS VIVIAN METAB OLIC PANEL urea nitrogen (BUN) 18 mg/dL 7-25 normal Not Available [facility] [address], [address], 08/22/2021 16:27:22 08/19/20 21 08/22/2021 COMPR EHENS VIVIAN METAB OLIC PANEL creatinine 0.68 mg/dL 0.50-1 .05 normal For patie nts >49 years of age, the refer ence limit for Creat inine is appro ximat marino 13% highe r for peopl e ident ified as Afric an-Am lorna n. Not Available [facility] [address], [place], [address], 08/22/2021 16:27:22 08/19/20 21 08/22/2021 COMPR EHENS VIVIAN METAB OLIC PANEL eGFR non-afr. hong konger 101 mL/mi n/1.7 3m2 > or = 60 normal Not Available [facility] [address], [place], [address], 08/22/2021 16:27:22 08/19/20 21 08/22/2021 COMPR EHENS VIVIAN METAB OLIC PANEL eGFR 117 mL/mi n/1.7 3m2 > or = 60 normal Not Available [facility] [address], [place], [address], 08/22/2021 16:27:22 08/19/20 21 08/22/2021 COMPR EHENS VIVIAN METAB OLIC PANEL BUN/creatini ne ratio NOT APPLIC ABLE (calc ) 6-22 Not Available [facility] [address], [place], [address], 08/22/2021 16:27:22 08/19/20 21 08/22/2021 COMPR EHENS VIVIAN METAB OLIC PANEL sodium 138 mmol/ L 135-14 6 normal Not Available [facility] [address], [place], [address], 08/22/2021 16:27:22 08/19/20 21 08/22/2021 COMPR EHENS VIVIAN METAB OLIC PANEL potassium 4.1 mmol/ L 3.5-5. 3 normal Not Available [facility] [address], [place], [address], 08/22/2021 16:27:22 08/19/20 21 08/22/2021 COMPR EHENS VIVIAN METAB OLIC PANEL chloride 104 mmol/ L 98-110 normal Not Available [facility] [address], [place], [address], 08/22/2021 16:27:22 08/19/20 21 08/22/2021 COMPR EHENS VIVIAN METAB OLIC PANEL carbon dioxide 24 mmol/ L 20-32 normal Not Available [facility] [place] [facility] [address], [place], [address], 08/22/2021 16:27:22 08/19/20 21 08/22/2021 COMPR EHENS VIVIAN METAB OLIC PANEL calcium 9.6 mg/dL 8.6-10 .4 normal Not Available [facility] [address], [place], [address], 08/22/2021 16:27:22 08/19/20 21 08/22/2021 COMPR EHENS VIVIAN METAB OLIC PANEL protein, total 7.5 g/dL 6.1-8. 1 normal Not Available [facility] [address], [place], [address], 08/22/2021 16:27:22 08/19/20 21 08/22/2021 COMPR EHENS VIVIAN METAB OLIC PANEL albumin 4.4 g/dL 3.6-5. 1 normal Not Available [facility] [address], [place], [address], 08/22/2021 16:27:22 08/19/20 21 08/22/2021 COMPR EHENS VIVIAN METAB OLIC PANEL globulin 3.1 g/dL_ (calc ) 1.9-3. 7 normal Not Available [facility] [address], [place], [address], 08/22/2021 16:27:22 08/19/20 21 08/22/2021 COMPR EHENS VIVIAN METAB OLIC PANEL albumin/glob ulin ratio 1.4 (calc ) 1.0-2. 5 normal Not Available [facility] [address], [place], [address], 08/22/2021 16:27:22 08/19/20 21 08/22/2021 COMPR EHENS VIVIAN METAB OLIC PANEL bilirubin, total 0.4 mg/dL 0.2-1. 2 normal Not Available [facility] [address], [place], [address], 08/22/2021 16:27:22 08/19/20 21 08/22/2021 COMPR EHENS VIVIAN METAB OLIC PANEL alkaline phosphatase 56 U/L 37-153 normal Not Available [facility] [address], [place], [address], 08/22/2021 16:27:22 08/19/20 21 08/22/2021 COMPR EHENS VIVIAN METAB OLIC PANEL AST 17 U/L 10-35 normal Not Available [facility] [address], [place], [address], 08/22/2021 16:27:22 08/19/20 21 08/22/2021 COMPR EHENS VIVIAN METAB OLIC PANEL ALT 13 U/L 6-29 normal Not Available [facility] [address], [place], [address], 08/22/2021 16:27:22 08/19/20 21 08/22/2021 CBC (INCL UDES DIFF/ PLT) white blood cell count 4.2 thous and/u L 3.8-10 .8 normal Not Available [facility] [address], [place], [address], 08/22/2021 16:27:22 08/19/20 21 08/22/2021 CBC (INCL UDES DIFF/ PLT) red blood cell count 4.01 jose manuel on/uL 3.80-5 .10 normal Not Available [facility] [place] [facility] [address], [place], [address], 08/22/2021 16:27:22 08/19/20 21 08/22/2021 CBC (INCL UDES DIFF/ PLT) hemoglobin 12.2 g/dL 11.7-1 5.5 normal Not Available [facility] [place] [facility] [address], [place], [address], 08/22/2021 16:27:22 08/19/20 21 08/22/2021 CBC (INCL UDES DIFF/ PLT) hematocrit 37.5 % 35.0-4 5.0 normal Not Available [facility] [place] [facility] [address], [place], [address], 08/22/2021 16:27:22 08/19/20 21 08/22/2021 CBC (INCL UDES DIFF/ PLT) MCV 93.5 fL 80.0-1 00.0 normal Not Available [facility] [place] [facility] [address], [place], [address], 08/22/2021 16:27:22 08/19/20 21 08/22/2021 CBC (INCL UDES DIFF/ PLT) MCH 30.4 pg 27.0-3 3.0 normal Not Available [facility] [address], [place], [address], 08/22/2021 16:27:22 08/19/20 21 08/22/2021 CBC (INCL UDES DIFF/ PLT) MCHC 32.5 g/dL 32.0-3 6.0 normal Not Available [facility] [address], [place], [address], 08/22/2021 16:27:22 08/19/20 21 08/22/2021 CBC (INCL UDES DIFF/ PLT) RDW 12.2 % 11.0-1 5.0 normal Not Available [facility] [place] [facility] [address], [place], [address], 08/22/2021 16:27:22 08/19/20 21 08/22/2021 CBC (INCL UDES DIFF/ PLT) platelet count 241 thous and/u L 140-40 0 normal Not Available [facility] [place] [facility] [address], [place], [address], 08/22/2021 16:27:22 08/19/20 21 08/22/2021 CBC (INCL UDES DIFF/ PLT) MPV 10.4 fL 7.5-12 .5 normal Not Available [facility] [place] [facility] [address], [place], [address], 08/22/2021 16:27:22 08/19/20 21 08/22/2021 CBC (INCL UDES DIFF/ PLT) absolute neutrophils 2327 cells /uL 1500-7 800 normal Not Available [facility] [place] [facility] [address], [place], [address], 08/22/2021 16:27:22 08/19/20 21 08/22/2021 CBC (INCL UDES DIFF/ PLT) absolute lymphocytes 1550 cells /uL 850-39 00 normal Not Available [facility] [place] [facility] [address], [place], [address], 08/22/2021 16:27:22 08/19/20 21 08/22/2021 CBC (INCL UDES DIFF/ PLT) absolute monocytes 281 cells /uL 200-95 0 normal Not Available [facility] [place] [facility] [address], [place], [address], 08/22/2021 16:27:22 08/19/20 21 08/22/2021 CBC (INCL UDES DIFF/ PLT) absolute eosinophils 21 cells /uL 15-500 normal Not Available [facility] [place] [facility] [address], [place], [address], 08/22/2021 16:27:22 08/19/20 21 08/22/2021 CBC (INCL UDES DIFF/ PLT) absolute basophils 21 cells /uL 0-200 normal Not Available [facility] [place] [facility] [address], [place], [address], 08/22/2021 16:27:22 08/19/20 21 08/22/2021 CBC (INCL UDES DIFF/ PLT) neutrophils 55.4 % normal Not Available [facility] [address], [place], [address], 08/22/2021 16:27:22 08/19/20 21 08/22/2021 CBC (INCL UDES DIFF/ PLT) lymphocytes 36.9 % normal Not Available [facility] [address], [place], [address], 08/22/2021 16:27:22 08/19/20 21 08/22/2021 CBC (INCL UDES DIFF/ PLT) monocytes 6.7 % normal Not Available [facility] [place] [facility] [address], [place], [address], 08/22/2021 16:27:22 08/19/20 21 08/22/2021 CBC (INCL UDES DIFF/ PLT) eosinophils 0.5 % normal Not Available [facility] [address], [place], [address], 08/22/2021 16:27:22 08/19/20 21 08/22/2021 CBC (INCL UDES DIFF/ PLT) basophils 0.5 % normal Not Available [facility] [address] [place], [place], [address], 08/22/2021 16:27:22 08/19/20 21 08/22/2021 HEPAT ITIS C AB W/RFL RNA, PCR W/RFL GENOT YPE,L IPA hepatitis C antibody NON-RE ACTIVE non-re active normal Not Available [facility] [place] [facility] [address] [place], [place], [address], 08/22/2021 16:27:23 08/19/20 21 08/22/2021 HEPAT ITIS C AB W/RFL RNA, PCR W/RFL GENOT YPE,L IPA index 0.01 <1.00 normal HCV antib clarissa was non-r eacti ve. There is no labor atory evide nce of HCV infec tion. In most cases , no furth er actio n is requi red. Howev er, if recen t HCV expos ure is suspe cted, a test for HCV RNA (test code 90833 ) is sugmian sted. For addit ional infor mikhail magallon, plereilly e refer to http: //[facility] liliana magallon.Javier stDia gnost ics.c om/fa q/FAQ 194 (This link is being provi ded for infor mikhail tom/ educa nathan l purpo ses only. ) Not Available [facility] [place] [facility] [address] [place], [place], [address], 08/22/2021 16:27:23 08/19/20 21 08/22/2021 TSH W/REF FILIBERTO TO FT4 TSH w/reflex to FT4 2.18 mIU/L normal Refer ence Range > or = 20 Years 0.40- 4.50 Pregn samuel Range s First trime ster 0.26- 2.66 Secon d trime ster 0.55- 2.73 Third trime ster 0.43- 2.91 Not Available [facility] [place] [facility] [address] [place], [place], [address], 08/22/2021 16:27:23 08/19/20 21 08/22/2021 CULTU RE, URINE , ROUTI NE culture, urine, routine SEE NOTE abnormal CULTU RE, URINE , ROUTI NE Micro Numbe r: [id number] Test Statu s: Final Speci men Sourc e: Urine Speci men Quali ty: Adequ ate Resul t: 10,00 0-49, 000 CFU/m L of Group B Strep tococ cus isola kevin Beta- hemol ytic strep tococ ci are predi ctabl y susce ptibl e to Penic illin and other beta- lacta ms. Susce ptibi lity testi ng not routi michelet perfo rmed. Pleas e conta ct the labor atory withi n 3 days if susce ptibi lity testi ng is kenna ed. Comme nt: Eryth romyc in and clind amyci n are not recom walker d for treat ment of urina ry tract infec tions , but clind amyci n may be usefu l for treat ment in penic illin aller gic patie nts for recto vagin al colon izati on or for intra partu m proph ylaxi s if indic ated. Any amoun t of group B Strep tococ cus in urine speci mens obtai hao from pregn ant femal es is a marke r of genit al tract colon izati on. If this patie nt is pregn ant, pleas e refer to ACOG guide lines for appro priat e scree ronald and manag ement of pregn ant women . COMME NT: Addit ional non-p redom inati ng organ ism(s ) isola kevin. These organ isms, commo nly found on exter nal and inter nal genit migdalia, are consi dered colon izers . No furth er testi ng perfo rmed. Not Available [facility] [place] [facility] [address] [place] [address] [place], [place], [address], 08/22/2021 16:27:23 08/19/20 21 08/19/2021 urina lysis , dipst ick Leukocytes Trace Not Available In-Hous e Results For Internal Use Only, Do Not Delete/merge, 08/19/2021 11:04:24 08/19/20 21 08/19/2021 urina lysis , dipst ick Nitrite negati ve Not Available In-House Results For Internal Use Only, Do Not Delete/merge, 08/19/2021 11:04:24 08/19/20 21 08/19/2021 urina lysis , dipst ick Urobilinogen .2 Not Available In-Ho use Results For Internal Use Only, Do Not Delete/merge, 08/19/2021 11:04:24 08/19/20 21 08/19/2021 urina lysis , dipst ick Protein Negati ve Not Available In-House Results For Internal Use Only, Do Not Delete/merge, 08/19/2021 11:04:24 08/19/20 21 08/19/2021 urina lysis , dipst ick pH 5.5 Not Available In-House Results For Internal Use Only, Do Not Delete/merge, 08/19/2021 11:04:24 08/19/20 21 08/19/2021 urina lysis , dipst ick Blood Non-He molyze d: Trace Not Available In-House Results For Internal Use Only, Do Not Delete/merge, 08/19/2021 11:04:24 08/19/20 21 08/19/2021 urina lysis , dipst ick Specific Atkins 1.015 Not Available In-Mya se Results For Internal Use Only, Do Not Delete/merge, 08/19/2021 11:04:24 08/19/20 21 08/19/2021 urina lysis , dipst ick Ketone Negati ve Not Available In-House Results For Internal Use Only, Do Not Delete/merge, 08/19/2021 11:04:24 08/19/20 21 08/19/2021 urina lysis , dipst ick Bilirubin Negati ve Not Available In-House Results For Internal Use Only, Do Not Delete/merge, 08/19/2021 11:04:24 08/19/20 21 08/19/2021 urina lysis , dipst ick Glucose Negati ve Not Available In-House Results For Internal Use Only, Do Not Delete/merge, [id number] 08/19/2021 11:04:24 08/19/20 21 08/19/2021 urina lysis , dipst ick Appearance Clear Not Available In-Hous e Results For Internal Use Only, Do Not Delete/merge, [id number] 08/19/2021 11:04:24 08/19/20 21 08/19/2021 urina lysis , dipst ick Color Yellow Not Available In-House Results For Internal Use Only, Do Not Delete/merge, [id number] 08/19/2021 11:04:24 09/01/20 22 09/04/2022 LIPID PANEL WITH REFLE X TO DIREC T LDL cholesterol, total 210 mg/dL <200 high Not Available [facility] [address], [address], 09/04/2022 14:50:55 09/01/20 22 09/04/2022 LIPID PANEL WITH REFLE X TO DIREC T LDL HDL cholesterol 60 mg/dL > or = 50 normal Not Available [facility] [address], [address], 09/04/2022 14:50:55 09/01/20 22 09/04/2022 LIPID PANEL WITH REFLE X TO DIREC T LDL triglyceride s 93 mg/dL <150 normal Not Available [facility] [address], [address], 09/04/2022 14:50:55 09/01/20 22 09/04/2022 LIPID PANEL WITH REFLE X TO DIREC T LDL LDL-choleste rol 131 mg/dL _(elaine c) high Refer ence range : <100 Kenna able range <100 mg/dL for prima ry preve ntion ; <70 mg/dL for patie nts with CHD or diabe tic patie nts with > or = 2 CHD risk facto rs. LDL-C is now calcu lated using the [facility] n-Hop kins calcu latluis e n, which is a valid ated novel metho d provi ding zackery r accur acy than the Fried harvey equat ion in the estim ation of LDL-C . Rosa magallon SS et al. MILAGROS. 2013; 310(1 9): 2061- 2068 (http ://ed ucati on.Qu Martell stewartQRcao. com/f aq/FA Q164) Not Available [facility] [place] [facility] [address], [place], [address], 09/04/2022 14:50:55 09/01/20 22 09/04/2022 LIPID PANEL WITH REFLE X TO DIREC T LDL chol/HDLC ratio 3.5 (calc ) <5.0 normal Not Available [facility] [place] [facility] [address], [place], [address], 09/04/2022 14:50:55 09/01/20 22 09/04/2022 LIPID PANEL WITH REFLE X TO DIREC T LDL non HDL cholesterol 150 mg/dL _(elaine c) <130 high For patie nts with diabe lauri plus 1 major ASCVD risk facto r, treat ing to a non-H DL-C goal of <100 mg/dL (LDL- C of <70 mg/dL ) is consi dered a thera peuti c optio n. Not Available [facility] [place] [facility] [address], [place], [address], 09/04/2022 14:50:55 09/01/20 22 09/04/2022 SPECI MEN INTEG RITY COMPR OMISE D specimen integrity compromised Whole blood , unspu n or parti ally spun gel barri er tube was recei adria more than 6 hours since colle ction . A false eleva tion of K, Phos and LD as well as a false decre ase in gluco se may occur due to prolo nged conta ct with red cells . Not Available [facility] [place] [facility] [address], [place], [address], 09/04/2022 14:50:56 09/01/20 22 09/04/2022 COMPR EHENS VIVIAN METAB OLIC PANEL glucose 82 mg/dL 65-139 normal Non-f astin g refer ence inter poly Not Available [facility] [address], [place], [address], 09/04/2022 14:50:56 09/01/20 22 09/04/2022 COMPR EHENS VIVIAN METAB OLIC PANEL urea nitrogen (BUN) 15 mg/dL 7-25 normal Not Available [facility] [address], [place], [address], 09/04/2022 14:50:56 09/01/20 22 09/04/2022 COMPR EHENS VIVIAN METAB OLIC PANEL creatinine 0.55 mg/dL 0.50-1 .03 normal Not Available [facility] [address], [place], [address], 09/04/2022 14:50:56 09/01/20 22 09/04/2022 COMPR EHENS VIVIAN METAB OLIC PANEL eGFR 110 mL/mi n/1.7 3m2 > or = 60 normal The eGFR is based on the CKD-E PI 2020 equat ion. To calcu late the new eGFR from a previ ous Creat inine or Cysta tin C resul t, go to https :[email or web address] [email or web address] mayers s/ kdoqi /gfr% 5Fcal culat or Not Available [facility] [address], [place], [address], 09/04/2022 14:50:56 09/01/20 22 09/04/2022 COMPR EHENS VIVIAN METAB OLIC PANEL BUN/creatini ne ratio NOT APPLIC ABLE (calc ) 6-22 Not Available [facility] [address], [place], [address], 09/04/2022 14:50:56 09/01/20 22 09/04/2022 COMPR EHENS VIVIAN METAB OLIC PANEL sodium 139 mmol/ L 135-14 6 normal Not Available [facility] [place] [facility] [address], [place], [address], 09/04/2022 14:50:56 09/01/20 22 09/04/2022 COMPR EHENS VIVIAN METAB OLIC PANEL potassium 4.1 mmol/ L 3.5-5. 3 normal Not Available [facility] [place] [facility] [address], [place], [address], 09/04/2022 14:50:56 09/01/20 22 09/04/2022 COMPR EHENS VIVIAN METAB OLIC PANEL chloride 105 mmol/ L 98-110 normal Not Available [facility] [place] [facility] [address], [place], [address], 09/04/2022 14:50:56 09/01/20 22 09/04/2022 COMPR EHENS VIVIAN METAB OLIC PANEL carbon dioxide 25 mmol/ L 20-32 normal Not Available [facility] [place] [facility] [address], [place], [address], 09/04/2022 14:50:56 09/01/20 22 09/04/2022 COMPR EHENS VIVIAN METAB OLIC PANEL calcium 9.5 mg/dL 8.6-10 .4 normal Not Available [facility] [address], [place], [address], 09/04/2022 14:50:56 09/01/20 22 09/04/2022 COMPR EHENS VIVIAN METAB OLIC PANEL protein, total 7.3 g/dL 6.1-8. 1 normal Not Available [facility] [address], [place], [address], 09/04/2022 14:50:56 09/01/20 22 09/04/2022 COMPR EHENS VIVIAN METAB OLIC PANEL albumin 4.4 g/dL 3.6-5. 1 normal Not Available [facility] [address], [place], [address], 09/04/2022 14:50:56 09/01/20 22 09/04/2022 COMPR EHENS VIVIAN METAB OLIC PANEL globulin 2.9 g/dL_ (calc ) 1.9-3. 7 normal Not Available [facility] [address], [place], [address], 09/04/2022 14:50:56 09/01/20 22 09/04/2022 COMPR EHENS VIVIAN METAB OLIC PANEL albumin/glob ulin ratio 1.5 (calc ) 1.0-2. 5 normal Not Available [facility] [address], [place], [address], 09/04/2022 14:50:56 09/01/20 22 09/04/2022 COMPR EHENS VIVIAN METAB OLIC PANEL bilirubin, total 0.4 mg/dL 0.2-1. 2 normal Not Available [facility] [address], [place], [address], 09/04/2022 14:50:56 09/01/20 22 09/04/2022 COMPR EHENS VIVIAN METAB OLIC PANEL alkaline phosphatase 61 U/L 37-153 normal Not Available [facility] emploi.us [facility] [address], [place], [address], 09/04/2022 14:50:56 09/01/20 22 09/04/2022 COMPR EHENS VIVIAN METAB OLIC PANEL AST 21 U/L 10-35 normal Not Available [facility] [address], [place], [address], 09/04/2022 14:50:56 09/01/20 22 09/04/2022 COMPR EHENS VIVIAN METAB OLIC PANEL ALT 17 U/L 6-29 normal Not Available [facility] [address], [place], [address], 09/04/2022 14:50:56 09/01/2009/04/2022 URINA LYSIS , COMPL ETE W/REF FILIBERTO TO CULTU RE color YELLOW yellow normal Not Available [facility] [address], [place], [address], 09/04/2022 14:50:56 09/01/20 22 09/04/2022 URINA LYSIS , COMPL ETE W/REF FILIBERTO TO CULTU RE appearance CLEAR clear normal Not Available [facility] [address], [place], [address], 09/04/2022 14:50:56 09/01/20 22 09/04/2022 URINA LYSIS , COMPL ETE W/REF FILIBERTO TO CULTU RE specific gravity 1.008 1.001- 1.035 normal Not Available [facility] [address], [place], [address], 09/04/2022 14:50:56 09/01/20 22 09/04/2022 URINA LYSIS , COMPL ETE W/REF FILIBERTO TO CULTU RE pH 6.0 5.0-8. 0 normal Not Available [facility] [address], [place], [address], 09/04/2022 14:50:56 09/01/20 22 09/04/2022 URINA LYSIS , COMPL ETE W/REF FILIBERTO TO CULTU RE glucose NEGATI VE negati ve normal Not Available [facility] [address], [place], [address], 09/04/2022 14:50:56 09/01/2009/04/2022 URINA LYSIS , COMPL ETE W/REF FILIBERTO TO CULTU RE bilirubin NEGATI VE negati ve normal Not Available [facility] [place] [facility] [address], [place], [address], 09/04/2022 14:50:56 09/01/20 22 09/04/2022 URINA LYSIS , COMPL ETE W/REF FILIBERTO TO CULTU RE ketones NEGATI VE negati ve normal Not Available [facility] [address], [place], [address], 09/04/2022 14:50:56 09/01/20 22 09/04/2022 URINA LYSIS , COMPL ETE W/REF FILIBERTO TO CULTU RE occult blood NEGATI VE negati ve normal Not Available [facility] [place] [facility] [address], [place], [address], 09/04/2022 14:50:56 09/01/20 22 09/04/2022 URINA LYSIS , COMPL ETE W/REF FILIBERTO TO CULTU RE protein NEGATI VE negati ve normal Not Available [facility] [place] [facility] [address], [place], [address], 09/04/2022 14:50:56 09/01/20 22 09/04/2022 URINA LYSIS , COMPL ETE W/REF FILIBERTO TO CULTU RE nitrite NEGATI VE negati ve normal Not Available [facility] [place] [facility] [address], [place], [address], 09/04/2022 14:50:56 09/01/20 22 09/04/2022 URINA LYSIS , COMPL ETE W/REF FILIBERTO TO CULTU RE leukocyte esterase NEGATI VE negati ve normal Not Available [facility] [place] [facility] [address] [place], [address], 09/04/2022 14:50:56 09/01/20 22 09/04/2022 URINA LYSIS , COMPL ETE W/REF FILIBERTO TO CULTU RE WBC NONE SEEN /hpf < or = 5 normal Not Available [facility] [address], [place], [address], 09/04/2022 14:50:56 09/01/20 22 09/04/2022 URINA LYSIS , COMPL ETE W/REF FILIBERTO TO CULTU RE RBC NONE SEEN /hpf < or = 2 normal Not Available [facility] [address], [place], [address], 09/04/2022 14:50:56 09/01/20 22 09/04/2022 URINA LYSIS , COMPL ETE W/REF FILIBERTO TO CULTU RE squamous epithelial cells NONE SEEN /hpf < or = 5 normal Not Available [facility] [address], [place], [address], 09/04/2022 14:50:56 09/01/20 22 09/04/2022 URINA LYSIS , COMPL ETE W/REF FILIBERTO TO CULTU RE bacteria NONE SEEN /hpf none seen normal Not Available [facility] [address], [place], [address], 09/04/2022 14:50:56 09/01/20 22 09/04/2022 URINA LYSIS , COMPL ETE W/REF FILIBERTO TO CULTU RE hyaline cast NONE SEEN /lpf none seen normal Not Available [facility] [address], [place], [address], 09/04/2022 14:50:56 09/01/20 22 09/04/2022 REFLE XIVE URINE CULTU RE reflexive urine culture NO CULTU RE INDIC ATED Not Available [facility] [address], [place], [address], 09/04/2022 14:50:57 09/01/20 22 09/04/2022 CBC (INCL UDES DIFF/ PLT) white blood cell count 5.4 thous and/u L 3.8-10 .8 normal Not Available [facility] [place] [facility] [address], [place], [address], 09/04/2022 14:50:57 09/01/20 22 09/04/2022 CBC (INCL UDES DIFF/ PLT) red blood cell count 4.16 jose manuel on/uL 3.80-5 .10 normal Not Available [facility] [place] [facility] [address], [place], [address], 09/04/2022 14:50:57 09/01/20 22 09/04/2022 CBC (INCL UDES DIFF/ PLT) hemoglobin 12.6 g/dL 11.7-1 5.5 normal Not Available [facility] [place] [facility] [address], [place], [address], 09/04/2022 14:50:57 09/01/20 22 09/04/2022 CBC (INCL UDES DIFF/ PLT) hematocrit 38.2 % 35.0-4 5.0 normal Not Available [facility] [address], [place], [address], 09/04/2022 14:50:57 09/01/20 22 09/04/2022 CBC (INCL UDES DIFF/ PLT) MCV 91.8 fL 80.0-1 00.0 normal Not Available [facility] [address], [place], [address], 09/04/2022 14:50:57 09/01/20 22 09/04/2022 CBC (INCL UDES DIFF/ PLT) MCH 30.3 pg 27.0-3 3.0 normal Not Available [facility] [place] [facility] [address], [place], [address], 09/04/2022 14:50:57 09/01/20 22 09/04/2022 CBC (INCL UDES DIFF/ PLT) MCHC 33.0 g/dL 32.0-3 6.0 normal Not Available [facility] [place] [facility] [address], [place], [address], 09/04/2022 14:50:57 09/01/2009/04/2022 CBC (INCL UDES DIFF/ PLT) RDW 12.5 % 11.0-1 5.0 normal Not Available [facility] [place] [facility] [address], [place], [address], 09/04/2022 14:50:57 09/01/20 22 09/04/2022 CBC (INCL UDES DIFF/ PLT) platelet count 221 thous and/u L 140-40 0 normal Not Available [facility] [place] [facility] [address], [place], [address], 09/04/2022 14:50:57 09/01/20 22 09/04/2022 CBC (INCL UDES DIFF/ PLT) MPV 10.7 fL 7.5-12 .5 normal Not Available [facility] [place] [facility] [address], [place], [address], 09/04/2022 14:50:57 09/01/20 22 09/04/2022 CBC (INCL UDES DIFF/ PLT) absolute neutrophils 4001 cells /uL 1500-7 800 normal Not Available [facility] [address], [place], [address], 09/04/2022 14:50:57 09/01/20 22 09/04/2022 CBC (INCL UDES DIFF/ PLT) absolute lymphocytes 977 cells /uL 850-39 00 normal Not Available [facility] [place] [facility] [address], [place], [address], 09/04/2022 14:50:57 09/01/20 22 09/04/2022 CBC (INCL UDES DIFF/ PLT) absolute monocytes 378 cells /uL 200-95 0 normal Not Available [facility] [place] [facility] [address], [place], [address], 09/04/2022 14:50:57 09/01/20 22 09/04/2022 CBC (INCL UDES DIFF/ PLT) absolute eosinophils 22 cells /uL 15-500 normal Not Available [facility] [place] [facility] [address], [place], [address], 09/04/2022 14:50:57 09/01/20 22 09/04/2022 CBC (INCL UDES DIFF/ PLT) absolute basophils 22 cells /uL 0-200 normal Not Available [facility] [address], [place], [address], 09/04/2022 14:50:57 09/01/20 22 09/04/2022 CBC (INCL UDES DIFF/ PLT) neutrophils 74.1 % normal Not Available [facility] [place] [facility] [address], [place], [address], 09/04/2022 14:50:57 09/01/20 22 09/04/2022 CBC (INCL UDES DIFF/ PLT) lymphocytes 18.1 % normal Not Available [facility] [address], [address], 09/04/2022 14:50:57 09/01/20 22 09/04/2022 CBC (INCL UDES DIFF/ PLT) monocytes 7.0 % normal Not Available [facility] [place] [facility] [address] [place], [address], 09/04/2022 14:50:57 09/01/20 22 09/04/2022 CBC (INCL UDES DIFF/ PLT) eosinophils 0.4 % normal Not Available [facility] [address], [place], [address], 09/04/2022 14:50:57 09/01/20 22 09/04/2022 CBC (INCL UDES DIFF/ PLT) basophils 0.4 % normal Not Available [facility] [address], [place], [address], 09/04/2022 14:50:57 09/01/20 22 09/04/2022 TSH W/REF FILIBERTO TO FT4 TSH w/reflex to FT4 2.14 mIU/L normal Refer ence Range > or = 20 Years 0.40- 4.50 Pregn samuel Range s First trime ster 0.26- 2.66 Secon d trime ster 0.55- 2.73 Third trime ster 0.43- 2.91 Not Available [facility] [address], [place], [address], 09/04/2022 14:50:58 09/01/2009/01/2022 urina lysis , dipst ick Leukocytes Negati ve Not Available In-House Results For Internal Use Only, Do Not Delete/merge, [id number] 09/01/2022 10:08:14 09/01/2009/01/2022 urina lysis , dipst ick Nitrite negati ve Not Available In-House Results For Internal Use Only, Do Not Delete/merge, [id number] 09/01/2022 10:08:14 09/01/2009/01/2022 urina lysis , dipst ick Urobilinogen .2 Not Available In-Ho use Results For Internal Use Only, Do Not Delete/merge, [id number] 09/01/2022 10:08:14 09/01/2009/01/2022 urina lysis , dipst ick Protein Negati ve Not Available In-House Results For Internal Use Only, Do Not Delete/merge, 09/01/2022 10:08:14 09/01/2009/01/2022 urina lysis , dipst ick pH 6.0 Not Available In-House Results For Internal Use Only, Do Not Delete/merge, 09/01/2022 10:08:14 09/01/2009/01/2022 urina lysis , dipst ick Blood Non-He molyze d: Trace Not Available In-House Results For Internal Use Only, Do Not Delete/merge, 09/01/2022 10:08:14 09/01/2009/01/2022 urina lysis , dipst ick Specific Atkins 1.015 Not Available In-Mya se Results For Internal Use Only, Do Not Delete/merge, 09/01/2022 10:08:14 09/01/2009/01/2022 urina lysis , dipst ick Ketone Negati ve Not Available In-House Results For Internal Use Only, Do Not Delete/merge, 09/01/2022 10:08:14 09/01/2009/01/2022 urina lysis , dipst ick Bilirubin Negati ve Not Available In-House Results For Internal Use Only, Do Not Delete/merge, 09/01/2022 10:08:14 09/01/2009/01/2022 urina lysis , dipst ick Glucose 100 Not Available In-House Results For Internal Use Only, Do Not Delete/merge, 09/01/2022 10:08:14 09/01/2009/01/2022 urina lysis , dipst ick Appearance Clear Not Available In-Hous e Results For Internal Use Only, Do Not Delete/merge, 09/01/2022 10:08:14 09/01/2009/01/2022 urina lysis , dipst ick Color Yellow Not Available In-House Results For Internal Use Only, Do Not Delete/merge, 09/01/2022 10:08:14 07/22/20 23 07/26/2023 CULTU RE, URINE , ROUTI NE culture, urine, routine SEE NOTE CULTU RE, URINE , ROUTI NE Micro Numbe r: [id number] Test Statu s: Final Speci men Sourc e: Urine Speci men Quali ty: Adequ ate Resul t: Mixed genit al wiley isola kevin. These super ficia l bacte gita are not indic ative of a urina ry tract infec tion. No furth er organ ism ident ifica tion is warra nted on this speci men. If clini suleiman indic ated, recol lect clean -catc h, mid-s tream urine and trans alena immed iatel y to Urine Cultu re Trans port Tube. Not Available [facility] [address], [place], [address], 07/26/2023 07:30:37 07/22/2007/22/2023 urina lysis , dipst ick Leukocytes Modera te Not Available In-House Results For Internal Use Only, Do Not Delete/merge, 07/22/2023 10:33:10 07/22/2007/22/2023 urina lysis , dipst ick Nitrite negati ve Not Available In-House Results For Internal Use Only, Do Not Delete/merge, 07/22/2023 10:33:10 07/22/2007/22/2023 urina lysis , dipst ick Urobilinogen .2 Not Available In-Ho use Results For Internal Use Only, Do Not Delete/merge, 07/22/2023 10:33:10 07/22/20 23 07/22/2023 urina lysis , dipst ick Protein 300 Not Available In-House Results For Internal Use Only, Do Not Delete/merge, 07/22/2023 10:33:10 07/22/20 23 07/22/2023 urina lysis , dipst ick pH 7.0 Not Available In-House Results For Internal Use Only, Do Not Delete/merge, 07/22/2023 10:33:10 07/22/20 23 07/22/2023 urina lysis , dipst ick Blood Large Not Available In-House Results For Internal Use Only, Do Not Delete/merge, 07/22/2023 10:33:10 07/22/2007/22/2023 urina lysis , dipst ick Specific Atkins 1.020 Not Available In-Mya se Results For Internal Use Only, Do Not Delete/merge, 07/22/2023 10:33:10 07/22/20 23 07/22/2023 urina lysis , dipst ick Ketone Negati ve Not Available In-House Results For Internal Use Only, Do Not Delete/merge, 07/22/2023 10:33:10 07/22/20 23 07/22/2023 urina lysis , dipst ick Bilirubin Negati ve Not Available In-House Results For Internal Use Only, Do Not Delete/merge, 07/22/2023 10:33:10 07/22/2007/22/2023 urina lysis , dipst ick Glucose Negati ve Not Available In-House Results For Internal Use Only, Do Not Delete/merge, 07/22/2023 10:33:10 07/22/20 23 07/22/2023 urina lysis , dipst ick Appearance Cloudy Not Available In-Hous e Results For Internal Use Only, Do Not Delete/merge, 07/22/2023 10:33:10 07/22/20 23 07/22/2023 urina lysis , dipst ick Color Red Not Available In-House Results For Internal Use Only, Do Not Delete/merge, 07/22/2023 10:33:10 08/05/20 23 08/05/2023 urina lysis , dipst ick Leukocytes Negati ve Not Available In-House Results For Internal Use Only, Do Not Delete/merge, 08/05/2023 12:08:45 08/05/20 23 08/05/2023 urina lysis , dipst ick Nitrite negati ve Not Available In-House Results For Internal Use Only, Do Not Delete/merge, 08/05/2023 12:08:45 08/05/20 23 08/05/2023 urina lysis , dipst ick Urobilinogen .2 Not Available In-Ho use Results For Internal Use Only, Do Not Delete/merge, 08/05/2023 12:08:45 08/05/2008/05/2023 urina lysis , dipst ick Protein Negati ve Not Available In-House Results For Internal Use Only, Do Not Delete/merge, 08/05/2023 12:08:45 08/05/2008/05/2023 urina lysis , dipst ick pH 6.0 Not Available In-House Results For Internal Use Only, Do Not Delete/merge, 08/05/2023 12:08:45 08/05/2008/05/2023 urina lysis , dipst ick Blood Non-He molyze d: Trace Not Available In-House Results For Internal Use Only, Do Not Delete/merge, 08/05/2023 12:08:45 08/05/2008/05/2023 urina lysis , dipst ick Specific Atkins 1.010 Not Available In-Mya se Results For Internal Use Only, Do Not Delete/merge, 08/05/2023 12:08:45 08/05/2008/05/2023 urina lysis , dipst ick Ketone Negati ve Not Available In-House Results For Internal Use Only, Do Not Delete/merge, 08/05/2023 12:08:45 08/05/2008/05/2023 urina lysis , dipst ick Bilirubin Negati ve Not Available In-House Results For Internal Use Only, Do Not Delete/merge, 08/05/2023 12:08:45 08/05/20 23 08/05/2023 urina lysis , dipst ick Glucose Negati ve Not Available In-House Results For Internal Use Only, Do Not Delete/merge, 08/05/2023 12:08:45 08/05/20 23 08/05/2023 urina lysis , dipst ick Appearance Clear Not Available In-Hous e Results For Internal Use Only, Do Not Delete/merge, 08/05/2023 12:08:45 08/05/2008/05/2023 urina lysis , dipst ick Color Yellow Not Available In-House Results For Internal Use Only, Do Not Delete/merge, [id number] 08/05/2023 12:08:45 09/07/2009/09/2023 LIPID PANEL WITH REFLE X TO DIREC T LDL cholesterol, total 246 mg/dL <200 high Not Available [facility] [place] [facility] [address], [place], [address], 09/09/2023 15:53:20 09/07/2009/09/2023 LIPID PANEL WITH REFLE X TO DIREC T LDL HDL cholesterol 61 mg/dL > or = 50 normal Not Available [facility] [place] [facility] [address], [place], [address], 09/09/2023 15:53:20 09/07/2009/09/2023 LIPID PANEL WITH REFLE X TO DIREC T LDL triglyceride s 150 mg/dL <150 high Not Available [facility] [address], [place], [address], 09/09/2023 15:53:20 09/07/2009/09/2023 LIPID PANEL WITH REFLE X TO DIREC T LDL LDL-choleste rol 157 mg/dL _(elaine c) high Refer ence range : <100 Kenna able range <100 mg/dL for prima ry preve ntion ; <70 mg/dL for patie nts with CHD or diabe tic patie nts with > or = 2 CHD risk facto rs. LDL-C is now calcu lated using the Rosa n-Hop kins calcu flaco n, which is a valid ated novel shoshana terry acy than the Fried harvey equat ion in the estim ation of LDL-C . Rosa magallon SS et al. MILAGROS. 2013; 310(1 9): 2061- 2068 (http ://ed ucati on.Qu estDi Fanli websites. com/f aq/FA Q164) Not Available [facility] [address], [place], [address], 09/09/2023 15:53:20 09/07/2009/09/2023 LIPID PANEL WITH REFLE X TO DIREC T LDL chol/HDLC ratio 4.0 (calc ) <5.0 normal Not Available [facility] [address], [place], [address], 09/09/2023 15:53:20 09/07/2009/09/2023 LIPID PANEL WITH REFLE X TO DIREC T LDL non HDL cholesterol 185 mg/dL _(elaine c) <130 high For patie nts with diabe lauri plus 1 major ASCVD risk facto r, treat ing to a non-H DL-C goal of <100 mg/dL (LDL- C of <70 mg/dL ) is consi dered a thera peuti c optio n. Not Available [facility] [address], [place], [address], 09/09/2023 15:53:20 09/07/2009/09/2023 COMPR EHENS VIVIAN METAB OLIC PANEL glucose 89 mg/dL 65-99 normal Fasti ng refer ence inter poly Not Available [facility] [address], [place], [address], 09/09/2023 15:53:21 09/07/2009/09/2023 COMPR EHENS VIVIAN METAB OLIC PANEL urea nitrogen (BUN) 12 mg/dL 7-25 normal Not Available [facility] [address], [place], [address], 09/09/2023 15:53:21 09/07/20 23 09/09/2023 COMPR EHENS VIVIAN METAB OLIC PANEL creatinine 0.56 mg/dL 0.50-1 .03 normal Not Available [facility] [address], [place], [address], 09/09/2023 15:53:21 09/07/20 23 09/09/2023 COMPR EHENS VIVIAN METAB OLIC PANEL eGFR 108 mL/mi n/1.7 3m2 > or = 60 normal Not Available [facility] [address] [place], [place], [address], 09/09/2023 15:53:21 09/07/20 23 09/09/2023 COMPR EHENS VIVIAN METAB OLIC PANEL BUN/creatini ne ratio SEE NOTE: (calc ) 6-22 Not Repor kevin: BUN and Creat inine are withi n refer ence range . Not Available [facility] [address] [place], [place], [address], 09/09/2023 15:53:21 09/07/20 23 09/09/2023 COMPR EHENS VIVIAN METAB OLIC PANEL sodium 137 mmol/ L 135-14 6 normal Not Available [facility] [address] [place], [place], [address], 09/09/2023 15:53:21 09/07/20 23 09/09/2023 COMPR EHENS VIVIAN METAB OLIC PANEL potassium 4.2 mmol/ L 3.5-5. 3 normal Not Available [facility] [address] [place], [place], [address], 09/09/2023 15:53:21 09/07/20 23 09/09/2023 COMPR EHENS VIVIAN METAB OLIC PANEL chloride 105 mmol/ L 98-110 normal Not Available [facility] [address] [place], [place], [address], 09/09/2023 15:53:21 09/07/20 23 09/09/2023 COMPR EHENS VIVIAN METAB OLIC PANEL carbon dioxide 24 mmol/ L 20-32 normal Not Available [facility] [address], [place], [address], 09/09/2023 15:53:21 09/07/20 23 09/09/2023 COMPR EHENS VIVIAN METAB OLIC PANEL calcium 9.5 mg/dL 8.6-10 .4 normal Not Available [facility] [address], [place], [address], 09/09/2023 15:53:21 09/07/20 23 09/09/2023 COMPR EHENS VIVIAN METAB OLIC PANEL protein, total 7.8 g/dL 6.1-8. 1 normal Not Available [facility] [address], [place], [address], 09/09/2023 15:53:21 09/07/20 23 09/09/2023 COMPR EHENS VIVIAN METAB OLIC PANEL albumin 4.4 g/dL 3.6-5. 1 normal Not Available [facility] [address], [place], [address], 09/09/2023 15:53:21 09/07/20 23 09/09/2023 COMPR EHENS VIVIAN METAB OLIC PANEL globulin 3.4 g/dL_ (calc ) 1.9-3. 7 normal Not Available [facility] [address], [place], [address], 09/09/2023 15:53:21 09/07/20 23 09/09/2023 COMPR EHENS VIVIAN METAB OLIC PANEL albumin/glob ulin ratio 1.3 (calc ) 1.0-2. 5 normal Not Available [facility] [address], [place], [address], 09/09/2023 15:53:21 09/07/20 23 09/09/2023 COMPR EHENS VIVIAN METAB OLIC PANEL bilirubin, total 0.4 mg/dL 0.2-1. 2 normal Not Available [facility] [address], [place], [address], 09/09/2023 15:53:21 09/07/20 23 09/09/2023 COMPR EHENS VIVIAN METAB OLIC PANEL alkaline phosphatase 69 U/L 37-153 normal Not Available [facility] [address], [place], [address], 09/09/2023 15:53:21 09/07/2009/09/2023 COMPR EHENS VIVIAN METAB OLIC PANEL AST 26 U/L 10-35 normal Not Available [facility] [address], [place], [address], 09/09/2023 15:53:21 09/07/20 23 09/09/2023 COMPR EHENS VIVIAN METAB OLIC PANEL ALT 18 U/L 6-29 normal Not Available [facility] [address], [place], [address], 09/09/2023 15:53:21 09/07/20 23 09/09/2023 CBC (INCL UDES DIFF/ PLT) white blood cell count 5.0 thous and/u L 3.8-10 .8 normal Not Available [facility] [address], [place], [address], 09/09/2023 15:53:21 09/07/20 23 09/09/2023 CBC (INCL UDES DIFF/ PLT) red blood cell count 4.34 jose manuel on/uL 3.80-5 .10 normal Not Available [facility] [address], [place], [address], 09/09/2023 15:53:21 09/07/20 23 09/09/2023 CBC (INCL UDES DIFF/ PLT) hemoglobin 13.0 g/dL 11.7-1 5.5 normal Not Available [facility] [place] [facility] [address], [place], [address], 09/09/2023 15:53:21 09/07/2009/09/2023 CBC (INCL UDES DIFF/ PLT) hematocrit 38.8 % 35.0-4 5.0 normal Not Available [facility] [place] [facility] [address], [place], [address], 09/09/2023 15:53:21 09/07/2009/09/2023 CBC (INCL UDES DIFF/ PLT) MCV 89.4 fL 80.0-1 00.0 normal Not Available [facility] [place] [facility] [address], [place], [address], 09/09/2023 15:53:21 09/07/2009/09/2023 CBC (INCL UDES DIFF/ PLT) MCH 30.0 pg 27.0-3 3.0 normal Not Available [facility] [place] [facility] [address], [place], [address], 09/09/2023 15:53:21 09/07/2009/09/2023 CBC (INCL UDES DIFF/ PLT) MCHC 33.5 g/dL 32.0-3 6.0 normal Not Available [facility] [place] [facility] [address], [place], [address], 09/09/2023 15:53:21 09/07/2009/09/2023 CBC (INCL UDES DIFF/ PLT) RDW 13.1 % 11.0-1 5.0 normal Not Available [facility] [address], [place], [address], 09/09/2023 15:53:21 09/07/2009/0909/09/2023 CBC (INCL UDES DIFF/ PLT) platelet count 240 thous and/u L 140-40 0 normal Not Available [facility] [place] [facility] [address], [place], [address], 09/09/2023 15:53:21 09/07/20 23 09/09/2023 CBC (INCL UDES DIFF/ PLT) MPV 11.0 fL 7.5-12 .5 normal Not Available [facility] [place] [facility] [address], [place], [address], 09/09/2023 15:53:21 09/07/2009/09/2023 CBC (INCL UDES DIFF/ PLT) absolute neutrophils 3265 cells /uL 1500-7 800 normal Not Available [facility] [place] [facility] [address], [place], [address], 09/09/2023 15:53:21 09/07/2009/09/2023 CBC (INCL UDES DIFF/ PLT) absolute lymphocytes 1325 cells /uL 850-39 00 normal Not Available [facility] [place] [facility] [address], [place], [address], 09/09/2023 15:53:21 09/07/2009/09/2023 CBC (INCL UDES DIFF/ PLT) absolute monocytes 340 cells /uL 200-95 0 normal Not Available [facility] [place] [facility] [address], [place], [address], 09/09/2023 15:53:21 09/07/2009/09/2023 CBC (INCL UDES DIFF/ PLT) absolute eosinophils 40 cells /uL 15-500 normal Not Available [facility] [address], [place], [address], 09/09/2023 15:53:21 09/07/2009/09/2023 CBC (INCL UDES DIFF/ PLT) absolute basophils 30 cells /uL 0-200 normal Not Available [facility] [place] [facility] [address], [place], [address], 09/09/2023 15:53:21 09/07/2009/09/2023 CBC (INCL UDES DIFF/ PLT) neutrophils 65.3 % normal Not Available [facility] [place] [facility] [address], [place], [address], 09/09/2023 15:53:21 09/07/2009/09/2023 CBC (INCL UDES DIFF/ PLT) lymphocytes 26.5 % normal Not Available [facility] [place] [facility] [address], [place], [address], 09/09/2023 15:53:21 09/07/20 23 09/09/2023 CBC (INCL UDES DIFF/ PLT) monocytes 6.8 % normal Not Available [facility] [place] [facility] [address], [place], [address], 09/09/2023 15:53:21 09/07/20 23 09/09/2023 CBC (INCL UDES DIFF/ PLT) eosinophils 0.8 % normal Not Available [facility] [address], [place], [address], 09/09/2023 15:53:21 09/07/2009/09/2023 CBC (INCL UDES DIFF/ PLT) basophils 0.6 % normal Not Available [facility] [place] [facility] [address], [address], 09/09/2023 15:53:21 09/07/2009/09/2023 TSH W/REF FILIBERTO TO FT4 TSH w/reflex to FT4 3.43 mIU/L normal Refer ence Range > or = 20 Years 0.40- 4.50 Pregn samuel Range s First trime ster 0.26- 2.66 Secon d trime ster 0.55- 2.73 Third trime ster 0.43- 2.91 Not Available [facility] [place] [facility] [address], [place], [address], 09/09/2023 15:53:22 09/07/2009/07/2023 urina lysis , dipst ick Leukocytes Negati ve Not Available In-House Results For Internal Use Only, Do Not Delete/merge, 09/07/2023 10:06:04 09/07/2009/07/2023 urina lysis , dipst ick Nitrite negati ve Not Available In-House Results For Internal Use Only, Do Not Delete/merge, 09/07/2023 10:06:04 09/07/2009/07/2023 urina lysis , dipst ick Urobilinogen .2 Not Available In-Ho use Results For Internal Use Only, Do Not Delete/merge, 09/07/2023 10:06:04 09/07/2009/07/2023 urina lysis , dipst ick Protein Negati ve Not Available In-House Results For Internal Use Only, Do Not Delete/merge, 09/07/2023 10:06:04 09/07/2009/07/2023 urina lysis , dipst ick pH 5.5 Not Available In-House Results For Internal Use Only, Do Not Delete/merge, 09/07/2023 10:06:04 09/07/2009/07/2023 urina lysis , dipst ick Blood Non-He molyze d: Trace Not Available In-House Results For Internal Use Only, Do Not Delete/merge, 09/07/2023 10:06:04 09/07/2009/07/2023 urina lysis , dipst ick Specific Atkins 1.005 Not Available In-Mya se Results For Internal Use Only, Do Not Delete/merge, 09/07/2023 10:06:04 09/07/2009/07/2023 urina lysis , dipst ick Ketone Negati ve Not Available In-House Results For Internal Use Only, Do Not Delete/merge, [id number] 09/07/2023 10:06:04 09/07/20 23 09/07/2023 urina lysis , dipst ick Bilirubin Negati ve Not Available In-House Results For Internal Use Only, Do Not Delete/merge, [id number] 09/07/2023 10:06:04 09/07/20 23 09/07/2023 urina lysis , dipst ick Glucose Negati ve Not Available In-House Results For Internal Use Only, Do Not Delete/merge, [id number] 09/07/2023 10:06:04 09/07/20 23 09/07/2023 urina lysis , dipst ick Appearance Clear Not Available In-Hous e Results For Internal Use Only, Do Not Delete/merge, [id number] 09/07/2023 10:06:04 09/07/20 23 09/07/2023 urina lysis , dipst ick Color Yellow Not Available In-House Results For Internal Use Only, Do Not Delete/merge, [id number] 09/07/2023 10:06:04 09/14/20 24 09/17/2024 LIPID PANEL WITH REFLE X TO DIREC T LDL cholesterol, total 227 mg/dL <200 high Not Available [facility] [address], [address], 09/17/2024 13:35:18 09/14/20 24 09/17/2024 LIPID PANEL WITH REFLE X TO DIREC T LDL HDL cholesterol 63 mg/dL > or = 50 normal Not Available [facility] [address], [address], 09/17/2024 13:35:18 09/14/20 24 09/17/2024 LIPID PANEL WITH REFLE X TO DIREC T LDL triglyceride s 118 mg/dL <150 normal Not Available [facility] [address], [address], 09/17/2024 13:35:18 09/14/20 24 09/17/2024 LIPID PANEL WITH REFLE X TO DIREC T LDL LDL-choleste rol 140 mg/dL _(elaine c) high Refer ence range : <100 Kenna able range <100 mg/dL for prima ry preve ntion ; <70 mg/dL for patie nts with CHD or diabe tic patie nts with > or = 2 CHD risk facto rs. LDL-C is now calcu lated using the Rosa n-Hop kins calcu flaco n, which is a valid ated novel metho d provi ding zackery r accur acy than the Fried harvey equat ion in the estim ation of LDL-C . Rosa magallon SS et al. MILAGROS. 2013; 310(1 9): 2061- 2068 (http ://ed ucati on.Cognuse tavonPropers. Moku/f aq/FA Q164) Not Available [facility] [place] [facility] [address], [address], 09/17/2024 13:35:18 09/14/20 24 09/17/2024 LIPID PANEL WITH REFLE X TO DIREC T LDL chol/HDLC ratio 3.6 (calc ) <5.0 normal Not Available [facility] [place] [facility] [address], [address], 09/17/2024 13:35:18 09/14/20 24 09/17/2024 LIPID PANEL WITH REFLE X TO DIREC T LDL non HDL cholesterol 164 mg/dL _(elaine c) <130 high For patie nts with diabe lauri plus 1 major ASCVD risk facto r, treat ing to a non-H DL-C goal of <100 mg/dL (LDL- C of <70 mg/dL ) is nadine doss optio n. Not Available [facility] [place] [facility] [address], [address], 09/17/2024 13:35:18 09/14/20 24 09/17/2024 COMPR EHENS VIVIAN METAB OLIC PANEL glucose 81 mg/dL 65-139 normal Non-f astin g refer ence inter poly Not Available [facility] [address], [place], [address], 09/17/2024 13:35:19 09/14/20 24 09/17/2024 COMPR EHENS VIVIAN METAB OLIC PANEL urea nitrogen (BUN) 13 mg/dL 7-25 normal Not Available [facility] [address], [place], [address], 09/17/2024 13:35:19 09/14/2009/17/2024 COMPR EHENS VIVIAN METAB OLIC PANEL creatinine 0.66 mg/dL 0.50-1 .03 normal Not Available [facility] [address], [place], [address], 09/17/2024 13:35:19 09/14/20 24 09/17/2024 COMPR EHENS VIVIAN METAB OLIC PANEL eGFR 104 mL/mi n/1.7 3m2 > or = 60 normal Not Available [facility] [address], [place], [address], 09/17/2024 13:35:19 09/14/20 24 09/17/2024 COMPR EHENS VIVIAN METAB OLIC PANEL BUN/creatini ne ratio SEE NOTE: (calc ) 6-22 Not Repor kevin: BUN and Creat inine are withi n refer ence range . Not Available [facility] [address], [place], [address], 09/17/2024 13:35:19 09/14/20 24 09/17/2024 COMPR EHENS VIVIAN METAB OLIC PANEL sodium 139 mmol/ L 135-14 6 normal Not Available [facility] [address], [place], [address], 09/17/2024 13:35:19 09/14/20 24 09/17/2024 COMPR EHENS VIVIAN METAB OLIC PANEL potassium 4.6 mmol/ L 3.5-5. 3 normal Not Available [facility] [place] [facility] [address], [place], [address], 09/17/2024 13:35:19 09/14/2009/17/2024 COMPR EHENS VIVIAN METAB OLIC PANEL chloride 105 mmol/ L 98-110 normal Not Available [facility] [place] [facility] [address], [place], [address], 09/17/2024 13:35:19 09/14/20 24 09/17/2024 COMPR EHENS VIVIAN METAB OLIC PANEL carbon dioxide 25 mmol/ L 20-32 normal Not Available [facility] [place] [facility] [address], [place], [address], 09/17/2024 13:35:19 09/14/20 24 09/17/2024 COMPR EHENS VIVIAN METAB OLIC PANEL calcium 9.7 mg/dL 8.6-10 .4 normal Not Available [facility] [address], [place], [address], 09/17/2024 13:35:19 09/14/2009/17/2024 COMPR EHENS VIVIAN METAB OLIC PANEL protein, total 7.8 g/dL 6.1-8. 1 normal Not Available [facility] [address], [place], [address], 09/17/2024 13:35:19 09/14/20 24 09/17/2024 COMPR EHENS VIVIAN METAB OLIC PANEL albumin 4.5 g/dL 3.6-5. 1 normal Not Available [facility] [address], [place], [address], 09/17/2024 13:35:19 09/14/20 24 09/17/2024 COMPR EHENS VIVIAN METAB OLIC PANEL globulin 3.3 g/dL_ (calc ) 1.9-3. 7 normal Not Available [facility] [address], [place], [address], 09/17/2024 13:35:19 09/14/20 24 09/17/2024 COMPR EHENS VIVIAN METAB OLIC PANEL albumin/glob ulin ratio 1.4 (calc ) 1.0-2. 5 normal Not Available [facility] [address], [place], [address], 09/17/2024 13:35:19 09/14/20 24 09/17/2024 COMPR EHENS VIVIAN METAB OLIC PANEL bilirubin, total 0.4 mg/dL 0.2-1. 2 normal Not Available [facility] [address], [place], [address], 09/17/2024 13:35:19 09/14/20 24 09/17/2024 COMPR EHENS VIVIAN METAB OLIC PANEL alkaline phosphatase 61 U/L 37-153 normal Not Available [facility] [address], [place], [address], 09/17/2024 13:35:19 09/14/20 24 09/17/2024 COMPR EHENS VIVIAN METAB OLIC PANEL AST 18 U/L 10-35 normal Not Available [facility] [address], [place], [address], 09/17/2024 13:35:19 09/14/20 24 09/17/2024 COMPR EHENS VIVIAN METAB OLIC PANEL ALT 15 U/L 6-29 normal Not Available [facility] [address], [place], [address], 09/17/2024 13:35:19 09/14/20 24 09/17/2024 CBC (INCL UDES DIFF/ PLT) white blood cell count 4.3 thous and/u L 3.8-10 .8 normal Not Available [facility] [address], [place], [address], 09/17/2024 13:35:19 09/14/20 24 09/17/2024 CBC (INCL UDES DIFF/ PLT) red blood cell count 4.40 jose manuel on/uL 3.80-5 .10 normal Not Available [facility] [address], [place], [address], 09/17/2024 13:35:19 09/14/20 24 09/17/2024 CBC (INCL UDES DIFF/ PLT) hemoglobin 13.4 g/dL 11.7-1 5.5 normal Not Available [facility] [address], [place], [address], 09/17/2024 13:35:19 09/14/20 24 09/17/2024 CBC (INCL UDES DIFF/ PLT) hematocrit 41.9 % 35.0-4 5.0 normal Not Available [facility] [address], [place], [address], 09/17/2024 13:35:19 09/14/20 24 09/17/2024 CBC (INCL UDES DIFF/ PLT) MCV 95.2 fL 80.0-1 00.0 normal Not Available [facility] [address], [place], [address], 09/17/2024 13:35:19 09/14/20 24 09/17/2024 CBC (INCL UDES DIFF/ PLT) MCH 30.5 pg 27.0-3 3.0 normal Not Available [facility] [address], [place], [address], 09/17/2024 13:35:19 09/14/20 24 09/17/2024 CBC (INCL UDES DIFF/ PLT) MCHC 32.0 g/dL 32.0-3 6.0 normal For adult s, a sligh t decre ase in the calcu lated MCHC value (in the range of 30 to 32 g/dL) is most likel y not clini suleiman signi fican t; howev er, it shoul d be inter prete d with cauti on in corre lat n with other red cell moe eters and the patie nt's clini elaine condi tion. Not Available [facility] [place] [facility] [address], [place], [address], 09/17/2024 13:35:19 09/14/20 24 09/17/2024 CBC (INCL UDES DIFF/ PLT) RDW 12.8 % 11.0-1 5.0 normal Not Available [facility] [place] [facility] [address], [place], [address], 09/17/2024 13:35:19 09/14/20 24 09/17/2024 CBC (INCL UDES DIFF/ PLT) platelet count 253 thous and/u L 140-40 0 normal Not Available [facility] [place] [facility] [address], [place], [address], 09/17/2024 13:35:19 09/14/20 24 09/17/2024 CBC (INCL UDES DIFF/ PLT) MPV 10.7 fL 7.5-12 .5 normal Not Available [facility] [place] [facility] [address], [place], [address], 09/17/2024 13:35:19 09/14/20 24 09/17/2024 CBC (INCL UDES DIFF/ PLT) absolute neutrophils 2468 cells /uL 1500-7 800 normal Not Available [facility] [place] [facility] [address], [place], [address], 09/17/2024 13:35:19 09/14/20 24 09/17/2024 CBC (INCL UDES DIFF/ PLT) absolute lymphocytes 1441 cells /uL 850-39 00 normal Not Available [facility] [place] [facility] [address], [place], [address], 09/17/2024 13:35:19 09/14/20 24 09/17/2024 CBC (INCL UDES DIFF/ PLT) absolute monocytes 348 cells /uL 200-95 0 normal Not Available [facility] [place] [facility] [address], [place], [address], 09/17/2024 13:35:19 09/14/20 24 09/17/2024 CBC (INCL UDES DIFF/ PLT) absolute eosinophils 22 cells /uL 15-500 normal Not Available [facility] [place] [facility] [address], [place], [address], 09/17/2024 13:35:19 09/14/20 24 09/17/2024 CBC (INCL UDES DIFF/ PLT) absolute basophils 22 cells /uL 0-200 normal Not Available [facility] [place] [facility] [address], [place], [address], 09/17/2024 13:35:19 09/14/20 24 09/17/2024 CBC (INCL UDES DIFF/ PLT) neutrophils 57.4 % normal Not Available [facility] [place] [facility] [address], [place], [address], 09/17/2024 13:35:19 09/14/20 24 09/17/2024 CBC (INCL UDES DIFF/ PLT) lymphocytes 33.5 % normal Not Available [facility] [place] [facility] [address], [place], [address], 09/17/2024 13:35:19 09/14/2009/17/2024 CBC (INCL UDES DIFF/ PLT) monocytes 8.1 % normal Not Available [facility] [place] [facility] [address], [place], [address], 09/17/2024 13:35:19 09/14/2009/17/2024 CBC (INCL UDES DIFF/ PLT) eosinophils 0.5 % normal Not Available [facility] [place] [facility] [address], [place], [address], 09/17/2024 13:35:19 09/14/2009/17/2024 CBC (INCL UDES DIFF/ PLT) basophils 0.5 % normal Not Available [facility] [place] [facility] [address], [place], [address], 09/17/2024 13:35:19 09/14/2009/17/2024 TSH W/REF FILIBERTO TO FT4 TSH w/reflex to FT4 2.50 mIU/L normal Refer ence Range > or = 20 Years 0.40- 4.50 Pregn samuel Range s First trime ster 0.26- 2.66 Secon d trime ster 0.55- 2.73 Third trime ster 0.43- 2.91 Not Available [facility] [place] [facility] [address], [place], [address], 09/17/2024 13:35:20 09/14/2009/14/2024 urina lysis , dipst ick Leukocytes Negati ve Not Available In-House Results For Internal Use Only, Do Not Delete/merge, [id number] 09/14/2024 10:01:29 09/14/2009/14/2024 urina lysis , dipst ick Nitrite negati ve Not Available In-House Results For Internal Use Only, Do Not Delete/merge, [id number] 09/14/2024 10:01:09/14/2009/14/2024 urina lysis , dipst ick Urobilinogen .2 Not Available In-Ho use Results For Internal Use Only, Do Not Delete/merge, 09/14/2024 10:01:09/14/2009/14/2024 urina lysis , dipst ick Protein Negati ve Not Available In-House Results For Internal Use Only, Do Not Delete/merge, 09/14/2024 10:01:09/14/2009/14/2024 urina lysis , dipst ick pH 6.5 Not Available In-House Results For Internal Use Only, Do Not Delete/merge, 09/14/2024 10:01:09/14/2009/14/2024 urina lysis , dipst ick Blood Non-He molyze d: Trace Not Available In-House Results For Internal Use Only, Do Not Delete/merge, 09/14/2024 10:01:09/14/2009/14/2024 urina lysis , dipst ick Specific Atkins 1.010 Not Available In-Mya se Results For Internal Use Only, Do Not Delete/merge, 09/14/2024 10:01:09/14/2009/14/2024 urina lysis , dipst ick Ketone Negati ve Not Available In-House Results For Internal Use Only, Do Not Delete/merge, 09/14/2024 10:01:09/14/2009/14/2024 urina lysis , dipst ick Bilirubin Negati ve Not Available In-House Results For Internal Use Only, Do Not Delete/merge, 09/14/2024 10:01:09/14/2009/14/2024 urina lysis , dipst ick Glucose Negati ve Not Available In-House Results For Internal Use Only, Do Not Delete/merge, 09/14/2024 10:01:29 09/14/2009/14/2024 urina lysis , dipst ick Appearance Clear Not Available In-Hous e Results For Internal Use Only, Do Not Delete/merge, 2024 10:01:29 09/14/20 24 09/14/2024 urina lysis , dipst ick Color Pale Yellow Not Available In-House Results For Internal Use Only, Do Not Delete/merge, [id number] 09/14/2024 10:01:29 08/11/20 21 08/11/2021 MAMMO , diagn ostic , tomos ynthe sis, bilat eral, w/ CAD [address] [address] [phone] Patirima t Name: Sameer Varghese luz [facility] l Record #: [id number] Addres s: [address] Accoun t#: [id number] City/[place] ip: [place] [id number]: Sara Bowles DO Phone: Insura nce: MassHe alth PCC Requir ed /Ag e/Sex: 1969/ 2/F Self Pay Admit/ Reg Date: Orderi ng Dr: Sara Bowles SR, DO Locati on: DI.[facility]/ PCP: Sincere Bowles Jr. DO Date of Servic e: Order (s): MM Screen , CAD, Derian BI (p) CPT Code: Report Number : [id number] Reason for Exam: ROUTIN E PROCED URE INFORM ATION: Exam: MG Bilate ral Screen ing 3D Mammog brigitte Exam date and time: 021 1:05 PM Age: 51 years old Clinic al indica tion: Screen ing mammog iesha. Family histor y of breast cancer . It breast implan ts 11/11 TECHNI QUE: Imagin g protoc ol: Bilate ral screen ing tomosy nthesi s and 2D mammog brigitte includ ing comput er-aid ed detect ion (CAD) when perfor med. COMPAR ROZINA: 1. MG MM Screen , CAD, Derian BI (p) 020 12:17 PM 2. MG MM Diag Allen, CAD, Derian BI (p) 019 1:46 PM 3. MG MM diagno stic mammo BI 019 11:23 AM 4. MG MM screen ing mammo BI 12/06/19 19 3:46 PM FINDIN GS: MAMMOG BRIGITTE: Breast compos ition: The breast tissue is hetero geneou sly dense, which may obscur e small masses . Mass: None. Cesario ectura l distor tion: No new or suspic ious cesario ectura l distor tion. Calcif icatio ns: No new or suspic ious calcif icatio ns are presen t Asymme tric densit y: No new or suspic ious asymme tric densit y is presen t Skin thicke ronald: None. Axilla ry adenop athy: None. Implan ts: Subgla ndular augmen tation saline implan ts are presen t IMPRES DANIA: No mammog raphic eviden ce of malign samuel. Recomm end annual screen ing mammog brigitte unless otherw ise clinic ally indica kevin. ASSESS MENT: BI-RAD S catego ry 2: Benign This docume nt has been electr onical ly signed by [facility] Radiol ogist DARREN NAVA MD Benign Dictat ed By: Darren Nava MD 1228 Signed By: Darren Nava MD 1228 TD/TT: 1228 Tech: [id number] cc: LOWTI; LOWTI0 1* Sara Bowles Jr., DO; Sara Bowles SR, DO [facility] ? Rad [address] [facility] [address], [place], [address] 08/13/2021 13:32:00 09/16/20 21 09/16/2021 home sleep study No observ ation record ed. MARK Not Available 2020 11:33:56 08/13/20 22 08/13/2022 MAMMO , diagn ostic , tomos ynthe sis, bilat eral, w/ [place] [address] Patien t Name: Kulwinder magallon,Palm luz marina [facility] l Record #: [id number] Addres s: [address] Accoun t#: [id number] City/[place]/Z ip: [place] [address]: Sara Bowles DO Phone: Insura nce: MassHe alth PCC Requir ed /Ag e/Sex: 1969/ [birth year]/F Self Pay Admit/ Reg Date: Orderi ng Dr: Sara Bowles SR, DO Locati on: DI.[facility]/ PCP: Sincere Bowles Jr. DO Date of Servic e: Order (s): MM Screen , CAD, Derian BI (p) CPT Code: Report Number : [id number] Reason for Exam: ROUTIN E PROCED URE INFORM ATION: Exam: MG Bilate ral Screen ing 3D Mammog brigitte Exam date and time: 022 1:53 PM Age: 52 years old Clinic al indica tion: Screen ing examin ation; Family histor y of breast cancer : Cousin TECHNI QUE: Imagin g protoc ol: Bilate ral Screen ing tomosy nthesi s and 2D mammog brigitte includ ing comput er-aid ed detect ion (CAD) when perfor med. COMPAR ROZINA: 1. MG MM Screen , CAD, Derian BI (p) 021 1:54 PM 2. MG MM Screen , CAD, Derian BI (p) 020 12:17 PM FINDIN GS: MAMMOG BRIGITTE: Breast compos ition: There are scatte red areas of fibrog landul ar densit y. Mass: None. Cesario ectura l distor tion: None. Calcif icatio ns: No suspic ious calcif icatio ns. Asymme tric densit y: None. Skin thicke ronald: None. Axilla ry adenop athy: None. Implan ts: Prepec kinsey saline breast implan ts are presen t. IMPRES DANIA: No mammog raphic eviden ce of malign samuel. Annual screen ing is recomm ended unless otherw ise clinic ally indica kevin. ASSESS MENT: BI-RAD S Catego ry 1: Negati ve This docume nt has been electr onical ly signed by [facility] Radiol ogist JESSICA Magallon MD Negati ve Dictat ed By: Jessica magallon MD 40 Signed By: Lio Galindo MD 0641 TD/TT: 0640 Tech: LTD02 cc: LOWTI; [id number] 1* Sara Bowles Jr., DO; Sara Bowles SR, DO [facility] ? Rad [address], [place], [address] 08/13/2022 14:30:32 08/16/20 23 08/16/2023 MAMMO , diagn ostic , tomos ynthe sis, bilat eral, w/ CAD [address] [address] Patien t Name: Kulwinder magallonSameer luz marina Medica l Record #: [id number] Addres s: [address] Accoun t#: [id number] City/[place]/Z ip: [place] [id number]: Sraa Bowles DO Phone: Insura nce: MassHe alth PCC Requir ed /Ag e/Sex: 1969/[age]/F Self Pay Admit/ Reg Date: Orderi ng Dr: Sara Bowles SR, DO Locati on: DI.[facility]/ PCP: Sincere Bowles DO Date of Servic e: Order (s): MM Screen , CAD, Derian BI (p) CPT Code: Report Number : [id number] Reason for Exam: ROUTIN E PROCED URE INFORM ATION: Exam: MG Bilate ral Screen ing 3D Mammog brigitte Exam date and time: 023 1:41 PM Age: 53 years old Clinic al indica tion: Screen ing examin ation; Family histor y of breast cancer : Patern al cousin TECHNI QUE: Imagin g protoc ol: Bilate ral Screen ing tomosy nthesi s and 2D mammog brigitte includ ing comput er-aid ed detect ion (CAD) when perfor med. COMPAR ROZINA: 1. MG MM Screen , CAD, Derian BI (p) 022 1:53 PM 2. MG MM Screen , CAD, Derian BI (p) 021 1:54 PM FINDIN GS: MAMMOG BRIGITTE: Breast compos ition: There are scatte red areas of fibrog landul ar densit y. Mass: None. Cesario ectura l distor tion: None. Calcif icatio ns: No suspic ious calcif icatio ns. Asymme tric densit y: None. Skin thicke ronald: None. Axilla ry adenop athy: None. Implan ts: Prepec kinsey saline breast implan ts are presen t. IMPRES DANIA: No mammog raphic eviden ce of malign samuel. Annual screen ing is recomm ended unless otherw ise clinic ally indica kevin. ASSESS MENT: BI-RAD S Catego ry 1: Negati ve This docume nt has been electr onical ly signed by vRad Radiol ogist JESSICA Magallon MD Negati ve DB Dictat ed By: Jessica magallon MD 121 Signed By: Lio Galindo MD 1211 TD/TT: 121 Tech: [facility] 01 cc: LOWTI* Sara Bowles SR, DO tpark[address] [place] [address] ? Rad [address] [facility] [address], [place], [address] 08/18/2023 08:18:23 08/22/20 24 08/22/2024 MAMMO , diagn ostic , tomos ynthe sis, bilat eral, w/ [facility] [address] [id number] [phone] Patien t Name: Kulwinder magallonSameer luz marina Medica l Record #: [id number] Addres s: [address] Accoun t#: [id number] City/[place]/Z ip: [place] [address]: Sara Bowles DO Phone: Insura nce: MassHe alth PCC Requir ed /Ag e/Sex: 1969/5 5/F Self Pay Admit/ Reg Date: Orderi ng Dr: Sara Bowles SR, DO Locati on: DI.[facility]/ PCP: Sincere Bowles DO Date of Servic e: Order (s): MM Screen , CAD, Derian BI (p) CPT Code: Report Number : [id number] Reason for Exam: ROUTIN E PROCED URE INFORM ATION: Exam: MG Bilate ral Screen ing 3D Mammog brigitte Exam date and time: 024 1:08 PM Age: 54 years old Clinic al indica tion: Screen ing examin ation; No person al or family histor y of breast cancer TECHNI QUE: Imagin g protoc ol: Bilate ral Screen ing tomosy nthesi s and 2D mammog brigitte includ ing comput er-aid ed detect ion (CAD) when perfor med. COMPAR ROZINA: 1. MG MM Screen , CAD, Derian BI (p) 023 1:41 PM 2. MG MM Screen , CAD, Derian BI (p) 022 1:53 PM FINDIN GS: MAMMOG BRIGITTE: Breast compos ition: There are scatte red areas of fibrog landul ar densit y. Mass: None. Cesario ectura l distor tion: None. Calcif icatio ns: No suspic ious calcif icatio ns. Asymme tric densit y: None. Skin thicke ronald: None. Axilla ry adenop athy: None. Implan ts: Prepec kinsey saline breast implan ts are presen t. IMPRES DANIA: No mammog raphic eviden ce of malign samuel. Annual screen ing is recomm ended unless otherw ise clinic ally indica kevin. ASSESS MENT: BI-RAD S Catego ry 1: Negati ve. This docume nt has been electr onical ly signed by vRad Radiol ogist JESSICA Magallon MD Negati ve DB Dictat ed By: Jessica magallon MD 1037 Signed By: Lio Galindo MD 1038 TD/TT: 1037 Tech: [facility]DM[facility] 02 cc: FERNANDO* Sara Bowles , DO MARK [place] ? Rad [address], [place], [address] 08/24/2024 09:27:14 Result Notes None recorded. Problems Name Problem SNOMED Code Status Onset Date Resolution Date Notes Provider Name and Address Organization Details Recorded Time Low back pain 487570475 Active 2015 Lesa Richie mock [facility] 6 16:39:59 Dysuria 89544823 Active Tamera Parnell NP [address] [place], [address], [facility] 4 15:01:45 Amenorrhea 99048657 Jeanette Parnell NP [address] [place], [address], [facility] 4 15:01:45 Breast tenderness 14576839 Active Elin mock [facility] 4 12:17:02 Dysfunctiona l uterine bleeding Active Marie mock [facility] 4 06:59:26 Depressive disorder 59180209 Jeanette Parnell NP [address] [place], [address], [facility] 6 13:44:43 Breast lump symptom Active Marie mock [facility] 5 10:11:34 Anemia 797323905 Active Marie mock [facility] 5 10:11:34 Abdominal bloating 329520550 Active Marie mock [facility] 5 10:11:34 Problem Notes None recorded. Procedures Surgical History Date Name Laterality Status Provider Name and Address Organization Details Recorded Time 024 Most Recent Mammogram completed Asya Langford [facility] 09/14/2024 10:06:16 020 Most Recent Bone Density completed Trisha Bolanosmes [facility] 09/01/2022 10:13:01 017 Date of Last Pap Smear completed Kindra Wang [facility] 08/10/2017 13:15:20 996 Cholecystectomy completed Elin Shilpi [facility] 06/06/2013 10:59:21 Imaging Results Imaging Date Name Status LastModified by Organiz ation Details LastModified Time 08/11/2021 MAMMO, diagnostic, tomosynthes is, bilateral, w/ CAD completed [facility] ? Rad [address], [place], [address] 08/13/2021 13:32:00 09/16/2021 home sleep study completed [facility] Information not available 09/17/2021 11:33:56 08/13/2022 MAMMO, diagnostic, tomosynthes is, bilateral, w/ CAD completed [facility] ? Rad [address] [facility] [address], [place], [address] 08/13/2022 14:30:32 08/16/2023 MAMMO, diagnostic, tomosynthes is, bilateral, w/ CAD completed [address] ? Rad [address] [facility] [address], [place], [address] 08/18/2023 08:18:23 08/22/2024 MAMMO, diagnostic, tomosynthes is, bilateral, w/ CAD completed [facility] ? Rad [address] [facility] [address], [place], [address] 08/24/2024 09:27:14 Procedure Notes None recorded. Medical Equipment None [...] PLEASE SEE ATTACHED FOR DETAILED DIRECTION S 09/14 completed Not Available Not Available Not Available [...] 75 mg tablet TAKE 2TABS BY MOUTH [id number] THEN 1 TAB DAILY X1 WK 1/2 TAB DAILY XWK THEN 1/2 TAB EVERY OTHER DAY 01/17 completed Not Available Not Available Not Available Transderm-S electron microscopist 1 mg over 3 days transdermal patch [...] height Body mass index (BMI) Body weight Body temperature Oxygen saturation Oxygen saturation in Arterial blood by Pulse oximetry Heart rate Provider Name and Address Organization Details Last Updated DateTime 1 157.48 cm 29.7 kg/m2 99449.6 6 g 97.9 [degF] 96 % 96 % 73 /min Liz Mendozasheila [facility] 1 11:12:20 Date Recorded Systolic blood pressure Diastolic blood pressure Provider Name and Address Organization Details Last Updated DateTime 08/19/2021 122 mm[Hg] 70 mm[Hg] Tamera Parnell, IT APPLICATIONS MANAGER [address] [place], [address], [facility] 08/19/2021 11:27:28 Date Recorded Body height Body mass index (BMI) Body weight Body temperature Oxygen saturation Oxygen saturation in Arterial blood by Pulse oximetry Heart rate Systolic blood pressure Diastolic blood pressure Provider Name and Address Organization Details Last Updated DateTime 2 157.48 cm 32.8 kg/m2 19908.7 3 g 98.5 [degF] 97 % 97 % 74 /min 118 mm[Hg] 70 mm[Hg] Trisha Juan Ramon [facility] 2 10:17:50 Date Recorded Body height Body mass index (BMI) Body weight Heart rate Oxygen saturation Oxygen saturation in Arterial blood by Pulse oximetry Body temperature Provider Name and Address Organization Details Last Updated DateTime 3 157.48 cm 34.7 kg/m2 15544.7 6 g 72 /min 95 % 95 % 98.8 [degF] Asya Cormier i [facility] 3 10:16:10 Date Recorded Systolic blood pressure Diastolic blood pressure Provider Name and Address Organization Details Last Updated DateTime 09/07/2023 128 mm[Hg] 76 mm[Hg] JENNI LING, TERRA COTTA ROOFER [address] [place], [address], [facility] 09/07/2023 11:05:16 Date Recorded Body height Body mass index (BMI) Body weight Heart rate Oxygen saturation Oxygen saturation in Arterial blood by Pulse oximetry Body temperature Provider Name and Address Organization Details Last Updated DateTime 4 157.48 cm 32.6 kg/m2 39010.5 4 g 74 /min 94 % 94 % 98.6 [degF] Asya Cormier i [facility] 4 10:10:38 Date Recorded Systolic blood pressure Diastolic blood pressure Provider Name and Address Organization Details Last Updated DateTime 09/14/2024 120 mm[Hg] 76 mm[Hg] JENNI LING, [facility] [address] [place], [address], [facility] 09/14/2024 10:44:36 Date Recorded Body height Body mass index (BMI) Body weight Heart rate Oxygen saturation Oxygen saturation in Arterial blood by Pulse oximetry Body temperature Systolic blood pressure Diastolic blood pressure Provider Name and Address Organization Details Last Updated DateTime 5 157.48 cm 31.9 kg/m2 27141.8 7 g 79 /min 99 % 99 % 98.9 [degF] 110 mm[Hg] 80 mm[Hg] Asya Cormier i [facility] 5 09:44:31 Social History Question Answer Notes LastModified by Organizat ion Details LastModified Time Tobacco Smoking Status Former Smoker Liz Radha mock, [facility] 08/19/2021 11:10:11 Do You Have An [...] available 08/15/2020 If Patient Spent Time In [facility] - Does The Patient Live In [facility]? No [email or web address] Information not available 12/27/2019 In The 14 Days Before Symptom Onset, Have You Had Close Contact With A Person Who Is Under Investigation For COVID-19 While That Person Was Ill? No Information not available 08/15/2020 In The 14 Days Before Symptom Onset, Did The Patient Spend Time In [facility]? 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 Yes Information not available 08/19/2021 What Was [...] Stones N Blood Diseases N Hyperthyroidism N Depression N COPD N Hypothyroidism N Developmental or Behavioral Disorders N Eczema, Hives or other skin conditions N Anxiety Disorder N Muscle, Joint, or Bone Problems N A-Fib N Vision or Eye Problems N Arthritis [...] Disease N Pulmonary Embolism N Hypertension N Chicken Pox N Osteoporosis N Gynecological History Statement/Question Response Number Of [...] intradermal, preservative free 4 completed Not Available [facility] 12/15/2019 02:16:24 influenza, seasonal, intradermal, preservative free 3 completed Not Available [facility] 12/15/2019 02:16:22 Tdap 0 completed Tamera Parnell, KAMILA [address] [place], [address], [place] 08/15/2020 13:50:31 zoster recombinant 4 completed Not Available [facility] 09/14/2024 11:03:54 zoster recombinant 5 completed Not Available [facility] 01/08/2025 10:00:24 Influenza, split virus, trivalent, preservative 5 completed Asya mock [place] [facility] 09/07/2023 10:06:34 Past Encounters Encounter ID Performer Location Encounter Start Date Encounter Closed Date Diagnosis/Indication Diagnosis SNOMED-CT Code Diagnosis ICD10 Code Diagnosis Note [id number] [facility] [address] [place] [address] 06/06/2013 10:21:06 06/06/2013 11:34:25 [id number] Yinka holcomb [facility] [address] [place] [address] 08/31/2013 09:39:46 08/31/2013 10:33:51 Adult health examination 054660885 Screening mammography 84020887 [facility] [facility] 836565105 Exercises education, guidance, and counseling 511196259 Influenza vaccine needed 2525503677 [id number] Kindra holcomb [facility] 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 no heavy periods just irregular. will monitor Depressive disorder 23272897 declines meds [id number] [facility] Associate sandra, P[facility]CRaymon [address] Prakashmorris [facility] [place] [id number] 12/10/2014 09:10:33 12/10/2014 09:47:51 Depressive disorder 08131608 declines meds Breast lump symptom 318411871 monitor after menses. if persists- f/u for US pt may be going for breast augmentati on in future Anemia 558865093 mother may have thalassemi a trait Abdominal bloating 630755287 monitor BM's, watch diet and try probiotic [id number] Lena Lux [facility] [address] [facility] [place] [id number] 09/05/2015 09:41:47 09/05/2015 10:44:34 Depressive disorder 83853139 F32.9 declines meds Adult heal th examination 898358221 Z00.01 Z00.00 Influenza vaccine needed 0524320117 106 Z23 Screening mammography 24 953531 Z12.31 [id number] Marie Alford [facility] [address] [facility] [place] [id number] 10/17/2015 09:47:20 10/17/2015 10:28:08 Depressive disorder 33999011 F32.9 doing ok but feels only mild improvemen t -will try increase dose Family his tory of Blood disorder 504375484 Z83.2 [id number] Marie Alford [facility] [address] [facility] [place] [address] 12/18/2015 09:30:18 12/18/2015 10:01:29 Depressive disorder 79522012 F32.9 due to adr's will wean off paxil and start well butrin [id number] Tamera Parnell NP [facility] [address] [facility] [place] [address] 02/06/2016 09:28:23 02/06/2016 10:03:54 Depressive disorder 77810356 F39 Patient still having symptoms; will increase wellbutrin from 150MG to 300MG and f/u in one month regarding this medication - if no improvemen t, may switch to either fluoxetine or citalopram ; patient has tried paxil in the past without relief; Also discussed therapy and patient will look into this [id number] Tamera Parnell NP [facility] [address] [facility] [place] [address] 05/14/2016 13:08:07 05/14/2016 13:46:04 Depressive disorder 40982832 F39 Patient still having symptoms; will increase wellbutrin from 300MG to 450MG and f/u in one month regarding this medication - if no improvemen t, may switch to either fluoxetine or citalopram ; patient has tried paxil in the past without relief; Also discussed therapy and will sign patient up for [facility] program [id number] Tamera Parnell NP [facility] [address] [facility] [place] [address] 07/28/2016 17:40:36 07/28/2016 18:09:59 Depressive disorder 26892137 F39 Patient doing well with current medication dosage; Also discussed therapy and will sign patient up for [facility] program Lyme disease 28542573 A6 9.20 Finish abx as prescribed given symptoms- no blood work done today given that it is too early for antibodies in serum. Fever 995055710 R51 R50.9 M79.1 R21 Advised patient to stay hydrated; Will try ibuprofen and will treat for lyme given patient's symptoms and clinical presentati on. [id number] KAMILA Love [facility] [address] [place] [id number] 08/24/2016 16:34:35 08/24/2016 17:06:19 Depressive disorder 21258064 F39 Patient states that she is stable with current medication dosage; Also discussed therapy and will sign patient up for [facility] program Hip pain 89994503 M25.55 2 F/u pending imaging- patient may need PT. Low back pain 733050460 M54.5 Advised to do heat, stretches, and medication as prescribed . F/u pending image results. [id number] Tamera Parnell NP Beulah holcomb [facility] [address] [facility] [place] [id number] 11/17/2016 12:58:22 11/17/2016 13:18:12 Depressive disorder 04270806 F39 Patient states that she is stable with current medication dosage; Also discussed therapy and patient to call her insurance company to see if they can find a therapist closer to her home than [facility] can. No refills needed today. [id number] KAMILA Love [facility] [address] [facility] [place] [id number] 05/18/2017 13:32:18 05/18/2017 14:07:44 Depressive disorder 73297543 F39 Patient states that she is stable with current medication dosage; Also discussed therapy and patient to call her insurance company to see if they can find a therapist closer to her home than [facility] can. No refills needed today. Unable to concentrate 60 921328 R41.840 Will have pt evaluated by Tommy Schneider to r/o ADD. [id number] Tamera Parnell NP [facility] [address] [place] [id number] 08/10/2017 12:57:29 08/10/2017 14:13:02 Depressive disorder 82340110 F39 Patient states that she is stable with current medication dosage; Also discussed therapy and patient to call her insurance company to see if they can find a therapist closer to her home than [facility] can. No refills needed today. Patient to f/u with Tommy Schneider for concentrat ion difficulty . Adult heal th examination 942405135 Z00.00 Gynecologi c examination 26906048 Z01.419 Screening for malignant neoplasm of cervix 413713053 Z12.4 Dizziness 416285434 R42 Exercises given for vertigo; blood work done today to r/o causes of dizziness. [id number] Tamera Parnell NP [facility] [address] [place] [address] 12/06/2017 13:02:38 12/06/2017 13:38:12 Depressive disorder 48654254 F39 Patient states that symptoms have been unstable with current medication ; Will taper off Wellbutrin , 150mg po qd for one week, 75 mg po qd for one week, and 75mg every other day for 2 weeks. Patient will start Effexor in the interim and is aware that this med may take 4-6 weeks to work. Also discussed therapy- signed up for [facility] today. Patient is aware of potential side effects associated with Effexor including SI within 2 weeks of starting med. Sleep sixto juma disturbance 54860044 G47.9 Sleep symptoms are stable but hoping to have improvemen t with Effexor. [id number] KAMILA Love [facility] [address] [place] [id number] 01/17/2018 13:07:03 01/17/2018 14:04:02 Anemia 735902467 D64.9 Symptoms stable. Depressive disorder 3548 9007 F39 Increased dose of effexor 150mg po qd to see if any further improvemen t; Patient is aware of potential side effects associated with Effexor and will still have neuropsych eval for depression /ADD. F/u with therapist as well. [id number] KAMILA [facility] [address] [place] [address] 01/31/2018 13:28:59 01/31/2018 14:55:00 Depressive disorder 73586830 F39 Increased dose of effexor 150mg po qd has improved symptoms; Patient is aware of potential side effects associated with Effexor and will still have neuropsych eval for depression /ADD. F/u with therapist as well. Dizziness 725389831 R42 R11.0 EKG normal, Exercises given for vertigo to try at home; blood work done. Advised to start flonase. May use meclizine and zofran for dizziness and nausea in the meantime. Patient denies but will check this today. Acute pharyngitis 928754 003 J02.9 R07.0 Improved; Patient advised to do warm, saltwater gargles and lozenges as needed. [id number] [facility]arnell [facility] [address] [facility] [place] [id number] 08/11/2018 13:00:19 08/11/2018 13:34:08 Depressive disorder 12207147 F39 Continue on current dose of effexor 150mg po qd and restart therapy; Patient is aware of potential side effects associated with Effexor and will still have neuropsych eval for depression /ADD. F/u with therapist as well. Adult heal th examination 071610854 Z00.00 [id number] Tamera [facility]arnell [facility] [address] [facility] [place] [id number] 08/14/2019 12:55:30 08/14/2019 13:56:52 Depressive disorder 68638514 F39 Symptoms stable without medication or therapy at this time. Anemia 948413136 D64.9 Symptoms stable- will recheck H&H today. Adult heal th examination 973528358 Z00.00 Screening for malignant neoplasm of colon 383221358 Z12.11 Skin lesion 20446260 L98 .9 Needs routine screening Allergic rhinitis 540907 04 J30.9 Advised to continue with claritin which has helped. [id number] HARPREET GILLESPIE NP [facility] [address] [facility] [place] [id number] 11/29/2019 14:24:50 11/29/2019 15:11:34 Depressive disorder 52121159 F32.9 Mood well controlled . No longer seeing therapist. Denies need for further interventi on. Dysuria 97387413 R30.0 Treat empiricall y for UTI. Blood in urine 67524161 R31.9 Symptoms consistent with UTI. Will send urine to lab for culture. If no bacterial growth, will send to urology. Advised increased fluids. [id number] Arvind Cheney D.O. [facility] [address] [facility] [place] [id number] 12/27/2019 17:58:48 12/27/2019 19:25:15 Depressive disorder 80771664 F32.9 no meds, doing well Cellulitis 579273620 L03 .90 start keflex f/u if worsening/ fever. [id number] Tamera Parnell NP [facility] [address] [facility] [place] [id number] 08/15/2020 13:00:20 08/15/2020 13:54:05 Depressive disorder 91020118 F39 Symptoms stable without medication or therapy at this time. Adult [facility] th examination 225713460 Z00.00 Administra tion of diphtheria, pertussis, and tetanus vaccine 232603182 Z23 Screening mammography 24 801398 Z12.31 LEFT breast asymmetry 6 month follow ups- UTD with screening. Screening for osteoporosis 805042528 Z13.820 M94.8X9 Screening for osteoporos is needed given pt age and menopausal state Menopausal flushing 1984 81963 N95.1 Will check hormone levels today to ensure menopause and will continue with black cohosh daily. Discussed effexor can work to help reduce menopausal symptoms, pt prefers to hold off on medication and will increase exercise. [id number] Tamera Parnell NP [facility]eli[facility] aicha [facility] [address] [facility] [place] [id number] 06/30/2021 13:39:22 06/30/2021 14:33:29 Depressive disorder 64798118 F39 Symptoms stable without medication or therapy at this time. Dizziness 582824648 R42 R11.0 EKG normal, Pt has done exercises given for vertigo at home in the past but will send for vestibular therapy if symptoms persist; no blood work done today Advised to use zofran for dizziness and nausea in the meantime. Adhesive c apsulitis of right shoulder 3998545847 52951 M75.01 Advised heat/ice, stretches, prednisone taper; sent for xrays, may need cortisone injection and PT should pain and limited ROM persist. Occurred after physical overuse, pt denies tick bite or rashes. Nausea 448151135 R11.0 Likely related to pain/dizzi ness from neck strain; advised to stay hydrated and take zofran prior to taking prednisone . Neck pain [id number] M54.2 Advised heat/ice, stretches, prednisone taper; sent for xrays, may need cortisone injection and PT should pain and limited ROM persist. Occurred after physical overuse, pt denies tick bite or rashes. [id number] Tamera Parnell NP [facility] [address] [place] [address] 08/19/2021 11:02:45 08/19/2021 11:27:26 Depressive disorder [id number] F39 Symptoms stable without medication or therapy at this time. Anemia [id number] D64.9 Symptoms stable- will recheck H&H today. Adult [facility] examination [id number] Z00.00 Evaluation procedure 386 354853 Z13.9 Z11.59 Snoring 99892603 R06.83 G47.9 Will get sleep study and advised Time-relea sed melatonin. Patient aware and in agreement with plan. [id number] HARPREET GILLESPIE NP [facility] [address] [place] [phone] 09/01/2022 09:56:45 09/01/2022 10:42:15 Depressive disorder [id number] F39 Mood well controlled . No longer seeing therapist. Denies need for further interventi on. Anemia 907513013 D64.9 Will check labs today. Adult [facility] examination [id number] Z00.00 Up to date with mammogram. Last was 07/2022. Last pap smear 2019. Followed by [facility]CHNIC[facility]. Last colonoscop y 2018. Next due in 2028. Normal bone density scan in 2019. Obesity 683894473 E66.9 BMI of 30 or greater- patient needs to monitor diet and exercise and should consider following a low fat/carb diet; advised about the importance of keeping BMI within normal range. She wishes to establish care with a nutritioni st for further discussion of diet. Active or passive immunization 256310005 Z23 [id number] [facility] [address] [place] [phone] 09/07/2023 10:02:47 09/07/2023 11:23:44 Anemia 475006881 D64.9 recent labs wnl Depressive disorder 3547 9007 F39 Symptoms of depression , also significan t family stress, difficulty w focusing/m otivation/ attention. Would benefit from therapist and also neuropsych eval to inform decision making w medication s. Adult heal th examination 264094998 Z00.00 Patient presents for annual PE, discussed healthy eating and exercise goals. 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 Discussed performing monthly SBEs. UTD on tdap, refuses flu and shingrix. PE is at baseline, BP wnl. Checking labs. Mood disorder 35059521 F 39 Symptoms of depression , also significan t family stress, difficulty w focusing/m otivation/ attention. Would benefit from therapist and also neuropsych eval to inform decision making w medication s. Positive s creening for depression on PHQ-9 (Patient Health Questionnaire 9) [id number] 57843 Z13.31 Positive PHQ, No SI/HI. Symptoms of depression , also significan t family stress, difficulty w focusing/m otivation/ attention. Would benefit from therapist and also neuropsych eval to inform decision making w medication s. Obesity 694761964 E66.9 discussed healthy eating, exercise goals at length, has prev worked w nutritioni , weight loss clinic an option, managing stress/emo tional health may help [id number] MEME RAMÍREZ [facility] [address] [place] [address] 09/14/2024 09:59:04 09/14/2024 11:21:01 Anemia 825526461 D64.9 recent labs wnl Depressive disorder 4759 9007 F39 Mood has improved since last year, didn't schedule with neuropsych last yr Adult heal th examination 267863304 Z00.00 Patient presents for annual PE, discussed healthy eating and exercise goals. 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 Discussed performing monthly SBEs. UTD on tdap, refuses flu, administer ed shingrix dose #1 today. PE is at baseline, BP wnl. Checking labs. Active immunization 3387 9002 Z23 Dose #1 today, #2 in 2-6 months Screening mammography 24 051999 Z12.31 Obesity 195387450 E66.9 discussed healthy eating, exercise goals at length, has prev worked w [facility], currently on tirzepatid e w some weight reduction [id number] MEME RAMÍREZ [facility] [address] [facility] [place] [address] 01/08/2025 09:37:48 01/08/2025 10:02:21 Active immunization 31708411 Z23 Dose #2inj only today Health Concerns Section Related Observation LastModified by Organization Detai ls LastModified Time None Recorded Concern Status LastModified by Organization Details LastModified Time None Recorded Advance Directives Directive N: Payers Encounter Date Sequence Insurance Name Policy Number Policy Catalan Covered Member ID Catalan Member ID Guarantor Name 08/19/2021 1 [place] [employer] [place] Cecilia Pollard [id number] Cecilia Pollard 09/01/2022 1 [place] Cecilia Pollard [id number] Cecilia Pollard 09/07/2023 1 [place] Cecilia Pollard [id number] Cecilia Pollard 09/14/2024 1 [place] Cecilia Pollard [id number] Ceciliara Pollard 09/14/2024 1 [facility] - DIRECT CONNECTORCARE TYPE I (HMO) [id number] Cecilia Pollard [id number] Cecilia Pollard 01/08/2025 1 [facility] - DIRECT CONNECTORCARE TYPE I (O) [id number] Cecilia Pollard [id number] Cecilia Pollard Notes Date Note Type Note Provider Name and Address Organization Details Recorded Time 08/19/2021 text/html Anxiety/Depressi onRep orted bypatient.Quality:sym ptoms improved;mood worse Severity:denies suicidal ideations; able to maintain relationships; does not interfere with activities of daily living Duration:x years Onset/Timing:still present Context:no major life stressors Modifying Factors:medications as directed Associated Symptoms:denies homicidal ideations; no significant weight gain; no significant weight loss; no visual/auditory hallucinations; no delusions; no shortness of breath; mood good; no anxiety; no crying spells; no panic; no isolation; energy good; maintaining functionality;emotion al lability(improving);h igh irritability;depressi on;restlessness/agita tion;sleep disturbancesNotes:no med.Sleep ProblemsReported bypatient.Hand Dominance:right General Sleep:no sleep apnea; not sleepy during the day (daytime somnolence);snoring(o cc.);insomnia: awakening in the middle of the night;unrefreshing sleep Onset/Timing:new onset Severity:does not interfere with daily activities; no drowsiness while driving; drowsiness not affecting work Quality:no loud snoring; no gasping for air; no hyponasal speech; no frequent breathing through the mouth Location of sleep apnea:no enlarged tonsils; no nasal passage blockage; no throat pain; no feeling of tightness in throat; no dryness of mouth; no chest congestion Narcolepsy Symptoms:no cataplexy Prescribed sleep medications:not taking medication to help sleep Associated Symptoms:no sleep problems; no hypertension; no history of stroke; no heart disease; no automobile accidents as a result of sleepiness; no increased motor activity at night; does not act out dreams; no history of sleep disorder; no family history of sleep disorder; no restless leg symptoms; good sleep hygieneNotes:no med. Annual PE Tamera Parnell NP [address] [place], [address], [place] [facility] 08/19/2021 11:30:37 09/01/2022 text/html Anxiety/Depressi onRep orted bypatient.Quality:sym ptoms improved;mood worse Severity:denies suicidal ideations; able to maintain relationships; does not interfere with activities of daily living Duration:x years Onset/Timing:still present Context:no major life stressors Modifying Factors:medications as directed Associated Symptoms:denies homicidal ideations; no significant weight gain; no significant weight loss; no visual/auditory hallucinations; no delusions; no shortness of breath; mood good; no anxiety; no crying spells; no panic; no isolation; energy good; maintaining functionality;emotion al lability(improving);h igh irritability;depressi on;restlessness/agita tion;sleep disturbancesNotes:no med. Anxiety is stable.Sleep ProblemsReported bypatient.Hand Dominance:right General Sleep:no sleep apnea; not sleepy during the day (daytime somnolence);snoring(o cc.);insomnia: awakening in the middle of the night;unrefreshing sleep Onset/Timing:new onset Severity:does not interfere with daily activities; no drowsiness while driving; drowsiness not affecting work Quality:no loud snoring; no gasping for air; no hyponasal speech; no frequent breathing through the mouth Location of sleep apnea:no enlarged tonsils; no nasal passage blockage; no throat pain; no feeling of tightness in throat; no dryness of mouth; no chest congestion Narcolepsy Symptoms:no cataplexy Prescribed sleep medications:not taking medication to help sleep Associated Symptoms:no sleep problems; no hypertension; no history of stroke; no heart disease; no automobile accidents as a result of sleepiness; no increased motor activity at night; does not act out dreams; no history of sleep disorder; no family history of sleep disorder; no restless leg symptoms; good sleep hygiene Notes:no med. Pt states she is waking at night with hot flashes. Pt states she is able to fall asleep however she is waking up a couple times during the night. Pt has tried Melatonin and pt states it did not make a difference for her, it's the hot flashes that wake her. Annual PENo flu shot.Pt would like to discuss her weight with provider. HARPREET GILLESPIE [employer] MA[employer] [address] [place], [address], [facility] 09/01/2022 10:41:33 09/07/2023 text/html Anxiety/Depressi onRep orted bypatient.Quality:moo d worse Severity:denies suicidal ideations; able to maintain relationships; does not interfere with activities of daily living Duration:symptoms lasting over 2 weeks; x years Onset/Timing:still present Context:major life stressors Associated Symptoms:denies homicidal ideations; no significant weight gain; no significant weight loss; no visual/auditory hallucinations; no delusions; no shortness of breath; mood good; no anxiety; no crying spells; no panic; no isolation; energy good; maintaining functionality;emotion al lability;high irritability;depressi on;restlessness/agita tion;sleep disturbancesNotes:moo d has been worse. no meds. Has trouble concentrating and completing tasks. no counseling/therapy currently, saw in past w/out relief. 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 has tried melatonin w/out relief. Annual PEdiscuss weight JENNI LING, TERRA COTTA ROOFER [address] [place], [phone], [facility] 11/09/2023 21:16:33 09/14/2024 text/html Anxiety/Depressi onRep orted bypatient.Quality:sym ptoms improved Severity:denies suicidal ideations; able to maintain relationships; does not interfere with activities of daily living Duration:symptoms lasting over 2 weeks; stablizing; x years Context:major life stressors Associated Symptoms:denies homicidal ideations; no significant weight gain; no significant weight loss; no visual/auditory hallucinations; no delusions; no shortness of breath; mood good; no anxiety; no crying spells; no panic; no isolation; energy good; maintaining functionality;emotion al lability;high irritability;depressi on;restlessness/agita tion;sleep disturbancesNotes:Moo d has been okay. No meds. No counseling/therapy. Annual PEshingles vaccine JENNI LNIG, TERRA [address]TA [address]OOFER [address] [place], [phone], [facility] 09/14/2024 11:04:35 01/08/2025 text/html second shingles dose JENNI WILKERSON, [facility] [address] [place], [address], [facility] 01/08/2025 10:00:09 OBGyn Episode No OBEpisode recorded.
--- OUTSIDE RECORDS SUMMARY | 2025-01-12 20:26 | XMS_ITS | Clinical Summary ---
Author Organization [facility] Address [address] [place] [address] Care Team Providers Care Surface Hydrologist Name Role Phone Jelena Parker DO, Timothy Primary Care Provider [phone] Allergies No known active allergies Medications No known medications Family History Relation Name Status Comments Father Alive Mother Alive Social History Tobacco Use Types Packs/Day Years Used Date Smoking Tobacco: Never Smokeless Tobacco: Never Tobacco Cessation:Counseling Given: Not Answered Alcohol Use Standard Drinks/Week Comments Yes 0 (1 standard drink = 0.6 oz pur e alcohol) Comments No Sex and Gender Information Value Date Recorded Sex Assigned at Female 07/10/2024 3:44 PM EDT Legal Sex Female 10:52 AM EDT Gender Identity Female 07/10/2024 3:44 PM EDT Sexual Orientation Straight 07/10/2024 3: 44 PM EDT Last Filed Vital Signs Vital Sign Reading Time Taken Comments Blood Pressure 112/68 07/10/2024 4:25 PM EDT Pulse 80 07/10/2024 4:25 PM EDT Temperature 37.2 ??C (98.9 ??F) 07/10/2024 4:25 PM ED T Respiratory Rate 18 07/10/2024 4:25 PM EDT Oxygen Saturation 100% 07/10/2024 4:25 PM EDT Inhaled Oxygen Concentration - - Weight 79.4 kg (175 lb) 07/10/2024 4:25 PM EDT Height 157.5 cm (5' 2 ) 07/10/2024 4:25 PM EDT Body Mass Index 32.01 07/10/2024 4:25 PM EDT Plan of Treatment Health Maintenance Due Date Last Done Comments Annual Physical 1972 Hepatitis B Screening 1987 Breast Cancer Screening 2009 CT Colonography 2014 Cholesterol Screening 2014 Colonoscopy 2014 Colorectal Cancer Screening 2014 FIT-DNA 2014 FOBT 2014 Sigmoidoscopy 2014 Zoster Standard Vaccine (1 of 2) 2019 COVID-19 Vaccine (1 - 2023-2 5 season) 2024 Influenza Vaccine (#1) 2024 09/05/2015 DTaP,Tdap,and Td Vaccines (2 - Td or Tdap) 08/15/2030 08/15/2020 HIB Vaccines Aged Out No longer eligi ble based on patient's age to complete this topic Hepatitis A Vaccine Aged Out No longe r eligible based on patient's age to complete this topic Pneumococcal Vaccines 0-64 y rs (includes High Risk) Aged Out No longer eligible based on patient's age to complete this topic Insurance [facility] DIRECT Care Teams Surface Hydrologist Relationship Specialty Start Date End Date Jagjit Bowles Jr., [address] [place] [address] [place] [id number] PCP - General Family Medicine 07/10/24
--- OUTSIDE RECORDS SUMMARY | 2025-01-12 20:26 | XMS_ITS ---
Author Organization [facility] Address [address] [place] [address] Care Team Providers Care [employer] Name Role Phone Jagjit Bowles DO Primary Care Provider Unavail able Day Garcia Unavailable [phone] Ryan HenryVaishali sanabria Unavailable [phone] Allergies No Known Allergies REASON FOR VISIT plantar fasciitis left, spur right Social History Tobacco Use: Social History Observation Description Date Details (start date - stop date) Never Smoker NA - NA Tobacco Use/Smoking Question Answer Notes Patient is a: never smoker Vital Signs Height 62 in 04/02/2024 Weight 184.4 lbs 04/02/2024 BMI 33.72 kg/m2 04/02/2024 Encounters Encounter Location Date Provider Diagnosis [facility] [address] [place] [phone] 04/02/2024 Vaishali Navarro Bone spur of right foot M77.51 ; Plantar fascial fibromatosis M72.2 ; Tinea pedis, right B35.3 ; Left foot pain M79.672 and Cavus foot, acquired M21.6X9 Assessments Encounter Date Diagnosis (ICD Code) Assessment Notes Treatment Notes Treatment Clinical Notes Section Notes 04/02/2024 Bone spur of right foot (ICD-10 - M77.51) Patient's right foot pain is resolved on exam. Patient did obtain x-rays but these were not discussed at today's visit. We will discuss them in detail at her follow up visit 04/02/2024 Plantar fascial fibromatosis (ICD-10 - M72.2) [...] for reassessment in a few weeks 04/02/2024 Tinea pedis, right (ICD-10 - B35.3) Patient was made aware of the above findings and the treatment options. I instructed patient on proper foot washing and drying. Patient will wash and dry the feet daily. Patient instructed to continue using the nctc-ici-aoeufyu medication she has been using. If she does not note resolution in 1 week she will call the office and a prescription will be sent to her pharmacy 04/02/2024 Left foot pain (ICD-10 - M79.672) 04/02/2024 Cavus foot, acquired (ICD-10 - M21.6X9) patient instructed to remain in a stable shoe with the insert 04/02/2024 Other Evaluation and management including exam, discussion and documentation for a total of 24 minutes. It should be noted that part or all of this chart was completed utilizing [employer] Speech Recognition software. Grammatical errors, random word [...] Of Treatment Next Appt Details Follow Up: 3 Weeks, Reason: Plantar fasciits left and review xray R foot Progress Notes * Kailash POLLARD:[birth year] (53 yo F)Acc No.[id number]:04/02/2024 Patient:?Cecilia POLLARD Provider:?Vaishali Navarro DPM :1970???Age:53 Y???Sex:Female D ate:04/02/2024 Address: [address], [id number] Pcp:Jagjit Bowles, DO Subjective: * Chief Complaints: * ???Plantar fasciitis left, s pur right * HPI: ???Podiatric:?53 yo female presents today for f/u bilateral foot issues. Patient states She has had improvement since her last visit. She states the right foot does not bother her at all. She states her left foot was doing very well for the 1st 2 weeks after her visit. She admits that she was icing, doing the stretching, using the anti-inflammatories and using the inserts. She states that the pain had been receding. She admits that she then went on college tours with her daughter and noted heel pain after doing the tours. She states the pain she noted is at the center of the heel. She notes that the pain has remained consistent over the past 2 weeks. She does not feel like this pain has changed. She admits that she is stretching twice a day majority of the time. She does try to stretch at night daily. She admits that she is icing at night. She states that she did buy other inserts as the inserts that were given to her were bothering her with this new area of pain. Patient also admits that she thinks she may have an athlete's foot on her right foot. She states that she noted some scaling and itching within the 1st interspace. She began treating with dmoq-sfn-fgcudlr cream last week. She also had noted a small area on the bottom of her foot. She thinks that this started when her feet were wet and did not remove her socks or shoes. She states that she has been using the zuun-yzo-nbdfxug cream x1 week and has noted improvement on the right foot. * ROS:?ROS:?Constitutional?Patient denies, fever, chills, malaise.?Musculoskeletal?Denies joint pain, swelling and muscle pain.?Skin?Denies dry skin, itching, and rash, ulcers, alopecia.?Neurologic?Denies dizziness, fainting, headaches, loss of strength, memory loss or tingling/numbness.? * Medical History:? * Surgical History:?cholecyste ctomy * Hospitalization/Major Diagno stic Procedure:?Denies Past Hospitalization * Family History:?Father: kena caceres, diagnosed with Hypertension, Heart Disease.?Mother: alive, diagnosed with Hypertension.? * Social History:?Tobacco Use:?Tobacco Use/Smoking?Patient is a:?never smoker.?Social History:?Marital Status: . Living arrangements: with spouse. Alcohol use: none. Children: 4. Occupation: Unemployed. Drug Use: No. * Medications:?None * Allergies:?N.K.D.A.no[Allerg ies Verified] * Implants:? Objective: * Vitals:?Ht: 62, Wt:184.4, Wt Change: -2 lbs, BMI:33.72Index. * Examination: ???Dermatology: ?Dermatology?Skin is warm, dry. Skin temperature is warm to cool proximal to distal bilateral. No erythema or edema noted over the feet bilateral. On the right foot, in the 1st interspace there was noted to be mild scaling. On the plantar medial aspect of the foot there 1 area with evidence of mild maceration and scaling.?Musculoskeletal: ?Musculoskeletal?Ankle joint and subtalar joint range of motion are intact and pain-free.? Cavus foot type b/l. no pain noted dorsally or plantarly over the right foot Left foot: Pain noted on palpation over the plantar medial calcaneal tubercle. No pain noted over the medial plantar arch or over the medial fascial band. Pain noted centrally over the heel. No pain noted laterally over the heel. No pain noted over the posterior aspect of the calcaneus. On dorsiflexion of the foot plantar medial fascial band is tight. Dorsiflexion? ?Is still reduced with??knee extended. With knee flexed increased dorsiflexion noted. Negative Tinel's..?Neurological: ???Sensation is intact to light touch at the level of the digits bilateral, Negative Tinel's sign bilateral. ???Vascular: ???DP 2/4 b/l, PT 2/4 b/l. CFT< 3 seconds b/l. No edema noted. No varicosities noted. Digital hair is present. ??? Assessment: * Assessment: 1.?Bone spur of right foot - M77.51 (Primary)?2.?Plantar fascial fibromatosis - M72.2?3.?Tinea pedis, right - B35.3?4.?Left foot pain - M79.672?5.?Cavus foot, acquired - M21.6X9? Plan: * Treatment: 2.?Plantar fascial fibromato sis? Clinical Notes: Discussed findings in detail with patient. We discussed additional treatment options given she is still having pain over the heel. We discussed injections, anti-inflammatories, physical therapy, night splints, continuing with the [...] follow up for reassessment in a few weeks?? 3.?Tinea pedis, right? Clinical Notes: Patient was made aware of the above findings and the treatment options. I instructed patient on proper foot washing and drying. Patient will wash and dry the feet daily. Patient instructed to continue using the bsuj-vld-ihscivy medication she has been using. If she does not note resolution in 1 week she will call the office and a prescription will be sent to her pharmacy?? 4.?Cavus foot, acquired? Clinical Notes: patient instructed to remain in a stable shoe with the insert?? 5.?Others? Clinical Notes: Evaluation and management including exam, discussion and documentation for a total of 24 minutes. It should be noted that part or all of this chart was completed utilizing [employer] Speech Recognition software. Grammatical errors, random word [...] clarification. ?? * Procedure Codes:? * Follow Up:?3 Weeks (Reason: Plantar fasciits left and review xray R foot) * * Sign off status: Completed true * Provider:Craig Navarro DPM Date:?0 04/02/2024 Generated for Artur john/Zhane/eTransmitting on:?01/12/2025 08:26 PM EST History and Physical Notes * HPI (History of Present Illness) Category Sub-Category Detail Notes Category Not es Podiatric 53 yo female pr esents today for f/u bilateral foot issues. Patient states She has had improvement since her last visit. She states the right foot does not bother her at all. She states her left foot was doing very well for the 1st 2 weeks after her visit. She admits that she was icing, doing the stretching, using the anti-inflammatories and using the inserts. She states that the pain had been receding. She admits that she then went on college tours with her daughter and noted heel pain after doing the tours. She states the pain she noted is at the center of the heel. She notes that the pain has remained consistent over the past 2 weeks. She does not feel like this pain has changed. She admits that she is stretching twice a day majority of the time. She does try to stretch at night daily. She admits that she is icing at night. She states that she did buy other inserts as the inserts that were given to her were bothering her with this new area of pain. Patient also admits that she thinks she may have an athlete's foot on her right foot. She states that she noted some scaling and itching within the 1st interspace. She began treating with sbuf-dbi-doiswxp cream last week. She also had noted a small area on the bottom of her foot. She thinks that this started when her feet were wet and did not remove her socks or shoes. She states that she has been using the ddyq-mxl-dbuwvzr cream x1 week and has noted improvement on the right foot Examination Category Sub-Category Detail Notes Category Not es Neurological Sensation is in tact to light touch at the level of the digits bilateral, Negative Tinel's sign bilateral Dermatology Dermatology Skin is warm, dr dexter Skin temperature is warm to cool proximal to distal bilateral. No erythema or edema noted over the feet bilateral. On the right foot, in the 1st interspace there was noted to be mild scaling. On the plantar medial aspect of the foot there 1 area with evidence of mild maceration and scaling Musculoskeletal Musculoskeletal Ankle joint and subtalar joint range of motion are intact and pain-free. Cavus foot type b/l. no pain noted dorsally or plantarly over the right foot Left foot: Pain noted on palpation over the plantar medial calcaneal tubercle. No pain noted over the medial plantar arch or over the medial fascial band. Pain noted centrally over the heel. No pain noted laterally over the heel. No pain noted over the posterior aspect of the calcaneus. On dorsiflexion of the foot plantar medial fascial band is tight. Dorsiflexion Is still reduced with knee extended. With knee flexed increased dorsiflexion noted. Negative Tinel's. Vascular DP 2/4 b/l, PT 2/4 b/l. CFT< 3 seconds b/l. No edema noted. No varicosities noted. Digital hair is present
--- OUTSIDE RECORDS SUMMARY | 2025-01-12 20:26 | XMS_ITS ---
Author Organization [facility] Address [address] [place] [address] Care Team Providers Care Tso Name Role Phone Jagjit Bowles DO Primary Care Provider Unavail able Day Garcia Unavailable [phone] Ryan Vaishali Navarro Unavailable [phone] Allergies No Known Allergies REASON FOR VISIT Plantar fasciits left Social History Tobacco Use: Social History Observation Description Date Details (start date - stop date) Never Smoker NA - NA Tobacco Use/Smoking Question Answer Notes Patient is a: never smoker Tobacco Control (Standard) Question Answer Notes Tobacco use: Nonsmoker Vital Signs Height 62 in 04/25/2024 Weight 181.2 lbs 04/25/2024 BMI 33.14 kg/m2 04/25/2024 Encounters Encounter Location Date Provider Diagnosis [facility] [address] [place] [address] [phone] 04/25/2024 Vaishali Navarro Bone spur of right foot M77.51 ; Plantar fascial fibromatosis M72.2 ; Tinea pedis, right B35.3 ; Left foot pain M79.672 and Cavus foot, acquired M21.6X9 Assessments Encounter Date Diagnosis (ICD Code) Assessment Notes Treatment Notes Treatment Clinical Notes Section Notes 04/25/2024 Bone spur of right foot (ICD-10 - M77.51) Discussed x-ray findings in detail with patient. Discussed with patient that it did show a soft tissue mass where we are noting that increased prominence. We discussed that follow-up studies can be performed including an MRI. At this time patient prefers to hold off as it is not causing her pain 04/25/2024 Plantar fascial fibromatosis (ICD-10 - M72.2) [...] without incident. This is the 1st injection 04/25/2024 Tinea pedis, right (ICD-10 - B35.3) Patient's tinea pedis infection has resolved. 04/25/2024 Left foot pain (ICD-10 - M79.672) 04/25/2024 Cavus foot, acquired (ICD-10 - M21.6X9) patient instructed to remain in a stable shoe with the insert 04/25/2024 Other Evaluation and management including exam, discussion and documentation for a total of 22 minutes. This is separate from the procedure performed It should be noted that part or all of this chart was completed utilizing [employer] Speech Recognition software. Grammatical errors, random word [...] Of Treatment Next Appt Details Follow Up: 4-6 weeks, Reason : left plantar fasciitis Progress Notes * Kailash POLLARD:[birth year] (53 yo F)Acc No.[id number]:04/25/2024 Patient:?Cecilia POLLARD Provider:?Vaishali Navarro DPM :1970???Age:53 Y???Sex:Female D ate:04/25/2024 Address: [address], [id number] Pcp:Jagjit Bowles, DO Subjective: * Chief Complaints: * ???Plantar fasciits left * HPI: ???Podiatric:?53 yo female presents today for f/u bilateral foot issues. Patient admit that the left heel has continued to bother her. She has noted slight improvement. She admits that she is using the night splint throughout the night and does note it helps her in the morning. She is able to get up and walk without pain in the foot. However, she admits that she is having pain as the day progresses. She admits that she is continued her at-home PT. She admits that she has been icing the foot and uses anti-inflammatory medication such as Advil as needed. She does wear her inserts when she wears sneakers. She admits that she has switched her shoes around with the warmer weather and presents today in thick sole flip-flops. Patient admits that she has noted resolution of the scaling/ athlete's foot on the right foot. She used the pyip-dlz-srfkdur medication and it resolved. * ROS:?ROS:?Constitutional?Patient denies, fever, chills, malaise.?Musculoskeletal?Denies joint pain, swelling and muscle pain.?Skin?Denies dry skin, itching, and rash, ulcers, alopecia.?Neurologic?Denies dizziness, fainting, headaches, loss of strength, memory loss or tingling/numbness.? * Medical History:? * Surgical History:?cholecyste ctomy * Hospitalization/Major Diagno stic Procedure:?No Hospitalization History. * Family History:?Father: kena caceres, diagnosed with Hypertension, Heart Disease.?Mother: alive, diagnosed with Hypertension.? * Social History:?Tobacco Use:?Tobacco Use/Smoking?Patient is a:?never smoker.?Tobacco Control (Standard)?Tobacco use:?Nonsmoker.?Social History:?Marital Status: . Living arrangements: with spouse. Alcohol use: none. Children: 4. Occupation: Unemployed. Drug Use: No. * Medications:?None * Allergies:?N.K.D.A.no[Allerg ies Verified] * Implants:? Objective: * Vitals:?Ht: 62, Wt:181.2, Wt Change: -3.2 lbs, BMI:33.14Index. * Examination: ???Dermatology: ?Dermatology?Skin is warm, dry. Skin temperature is warm to cool proximal to distal bilateral. No erythema or edema noted over the feet bilateral. Skin over the plantar aspect of the foot bilateral is noted to be clear without evidence of scaling or maceration.?Musculoskeletal: ?Musculoskeletal?Cavus foot type b/l. Left foot: Pain noted on palpation over the plantar medial calcaneal tubercle and slightly proximal. Tenderness noted towards the central aspect of the heel along the fascial attachment. No pain noted over the medial plantar arch. No pain noted over the posterior aspect of the calcaneus. On dorsiflexion of the foot plantar medial fascial band is tight. Dorsiflexion is still reduced with knee extended. With knee flexed increased dorsiflexion noted. Negative Tinel's..?Neurological: ???Sensation is intact to light touch at the level of the digits bilateral,. ???Vascular: ???DP 2/4 b/l, PT 2/4 b/l. CFT< 3 seconds b/l. No edema noted. No varicosities noted. Digital hair is present. ??? * Physical Examination:?DATA::?IMAGING? X-ray right foot:? moderate osteoarthritic changes throughout the right foot noted.? There is a soft tissue prominence/ swelling over the dorsal aspect of the midfoot.? No fracture dislocation noted.? Assessment: * Assessment: 1.?Bone spur of right [...] heel without incident. This is the 1st injection?? 3.?Tinea pedis, right? Clinical Notes: Patient's tinea pedis infection has resolved. ?? 4.?Cavus foot, acquired? Clinical Notes: patient instructed to remain in a stable shoe with the insert?? 5.?Others? Clinical Notes: Evaluation and management including exam, discussion and documentation for a total of 22 minutes. This is separate from the procedure performed It should be noted that part or all of this chart was completed utilizing [employer] Speech Recognition software. Grammatical errors, random word [...] the provider for clarification. ?? * Procedure Codes:?18191 INJ T ENDON SHEATH/LIGAMENT, Modifiers: LT J3301 Kenalog 10 mg, Units: 4.00 J1100 Dexamethasone POD, Units: 4.00 * Follow Up:?4-6 weeks (Reason : left plantar fasciitis) * * Sign off status: Completed true * Provider:?Vaishali Navarro DPM Date:?0 04/25/2024 Generated for Artur john/Zhane/Richarditting on:?01/12/2025 08:25 PM EST History and Physical Notes * HPI (History of Present Illness) Category Sub-Category Detail Notes Category Not es Podiatric 53 yo female pr esents today for f/u bilateral foot issues. Patient admit that the left heel has continued to bother her. She has noted slight improvement. She admits that she is using the night splint throughout the night and does note it helps her in the morning. She is able to get up and walk without pain in the foot. However, she admits that she is having pain as the day progresses. She admits that she is continued her at-home PT. She admits that she has been icing the foot and uses anti-inflammatory medication such as Advil as needed. She does wear her inserts when she wears sneakers. She admits that she has switched her shoes around with the warmer weather and presents today in thick sole flip-flops. Patient admits that she has noted resolution of the scaling/ athlete's foot on the right foot. She used the qgzt-kok-lwkbnns medication and it resolved Physical Examination Category Sub-Category Detail Notes Section Note s DATA: IMAGING X-ray right foot : moderate osteoarthritic changes throughout the right foot noted. There is a soft tissue prominence/ swelling over the dorsal aspect of the midfoot. No fracture dislocation noted Examination Category Sub-Category Detail Notes Category Not es Neurological Sensation is in tact to light touch at the level of the digits bilateral, Dermatology Dermatology Skin is warm, dr dexter Skin temperature is warm to cool proximal to distal bilateral. No erythema or edema noted over the feet bilateral. Skin over the plantar aspect of the foot bilateral is noted to be clear without evidence of scaling or maceration Musculoskeletal Musculoskeletal Cavus foot type b/l. Left foot: Pain noted on palpation over the plantar medial calcaneal tubercle and slightly proximal. Tenderness noted towards the central aspect of the heel along the fascial attachment. No pain noted over the medial plantar arch. No pain noted over the posterior aspect of the calcaneus. On dorsiflexion of the foot plantar medial fascial band is tight. Dorsiflexion is still reduced with knee extended. With knee flexed increased dorsiflexion noted. Negative Tinel's. Vascular DP 2/4 b/l, PT 2/4 b/l. CFT< 3 seconds b/l. No edema noted. No varicosities noted. Digital hair is present
[2025-01-12 21:08] VITALS: BP 149/89; PULSE 84; RESP 14; TEMP 36.6; O2SAT 99
== END 2025-01-12 21:09 | disposition home or self-care (01) ==
PROVIDERS: Emergency Provider Emergency Medicine Emergency Medical Services
DX: S52.501A Unspecified fracture of the lower end of right radius, initial encounter for closed fracture (principal); M25.531 Pain in right wrist; W01.0XXA Fall on same level from slipping, tripping and stumbling without subsequent striking against object, initial encounter; Y93.68 Activity, volleyball (beach) (court); Y92.318 Other athletic court as the place of occurrence of the external cause; Y99.8 Other external cause status
CPT/HCPCS: 29125; 73110; 73130; 99282; 99283; 99284

== ENCOUNTER → 2025-01-12 19:20 | Outpatient (BNV) | payer OTHER, SELFPAY | PROVIDERS: Emergency Provider Emergency Medicine Emergency Medical Services; Visit Provider Radiology Diagnostic Radiology | DX: S52.611A Displaced fracture of right ulna styloid process, initial encounter for closed fracture (principal) | CPT/HCPCS: 73110; 73130 ==